=== PATIENT | female | born 1955 | race Caucasian/White ===

== ENCOUNTER 2019-10-07 10:24 | Inpatient (IN) | payer SELFPAY ==
[~2019-10-07] VITALS: Ht 167.7 cm; Wt 71.5 kg
[2019-10-07] MEDS ORDERED: NS IV 1000 ML 1,000 ML IV SCH (10:42)
[2019-10-07] MEDS ORDERED: DILTIAZEM 25 MG/5 ML INJ (CARDIZEM) VIAL IVP ONE (10:45)
[2019-10-07] MEDS ORDERED: ASPIRIN 81 MG CHEW (CHILDREN'S ASA) PO ONE (10:45)
--- NOTE | 2019-10-07 10:48 | ED Chest Pain ---
General Chief Complaint: Cardiac/General Problems Stated Complaint: SOB/CP Source: patient Exam Limitations: no limitations History of Present Illness Date Seen by Provider: Oct 07, 2019 Time Seen by Provider: 10:30 Initial Comments Patient presents to ER by private conveyance with her son-in-law and chief complaint of tiredness, shortness of breath, chest tightness especially on the left side nonradiating and she denies pain. She has no history of coronary di sease. She does however have a history of atrial fibrillation with rapid response in the past. She was taken off all her medications because she had remained in a normal sinus rhythm about 4 years ago. She is followed by separations scientist in [place]. She does not follow with a primary care doctor. She denies a history of hypertension, hyperlipidemia, diabetes. She smokes about half pack cigarettes per day on average. She also endorses having smoked methamphetamines about 4 days ago. Her symptoms of racing heart, shortness of breath and weakness started about 3 weeks ago. She suspected then that her atrial fibrillation was back but says she was stubborn and did not want to come get checked out. 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 She notes that her bilateral leg edema is chronic. She used to be on Lasix but discontinued at the same time she stopped the rest of her medications. Allergies and Home Medications Allergies Coded Allergies: No Known Drug Allergies (Unverified , 10/07/19) Patient Home Medication List Home Medication List Reviewed: Yes Review of Systems Review of Systems Constitutional: No chills, No diaphoresis EENTM: No Blurred Vision, No Double Vision Respiratory: Denies Cough; Shortness of Air Cardiovascular: See HPI, Chest Pain (tightness); Denies Edema, Denies Lightheadedness Gastrointestinal: Denies Abdomen Distended, Denies Abdominal Pain Genitourinary: Denies Burning, Denies Discharge Musculoskeletal: No back pain, No gout, No joint pain All Other Systems Reviewed Negative Unless Noted: Yes Past Bbhvkxz-Nhuiit-Cvvgoq Hx Patient Social History Alcohol Use: Denies Use Recreational Drug Use: Yes Drug of Choice: methamphetamine Smoking Status: Current Everyday Smoker Type Used: Cigarettes (0.5 ppd) Recent Foreign Travel: No Contact w/Someone Who Travel: No Physical Exam Vital Signs Vital Signs - First Documented 10/07/19 10:24 Temp 36.4 Pulse 141 Resp 23 B/P (MAP) 109/86 (94) Pulse Ox 98 O2 Delivery Room Air Capillary Refill : Height, Weight, BMI Height: '" Weight: lbs. oz. kg; BMI Method: General Appearance: Mild Distress, Other (this gentleman) HEENT: PERRL/EOMI, Pharynx Normal, Moist Mucous Membranes Neck: Full Range of Motion, Normal Inspection Respiratory: Chest Non Tender, Lungs Clear, Normal Breath Sounds, No Accessory Muscle Use, No Respiratory Distress Cardiovascular: Irregularly Irregular, Tachycardia Gastrointestinal: Normal Bowel Sounds, Soft, Tenderness (epigastric mild) Extremity: Normal Capillary Refill, Pedal Edema (bilateral 1+) Neurologic/Psychiatric: Alert, Oriented x3, No Motor/Sensory Deficits Skin: Normal Color, Warm/Dry Progress/Results/Core Measures Results/Orders Lab Results Laboratory Tests Test 10/07/19 10:40 Range/Units White Blood Count 6.7 4.3-11.0 10^3/uL Red Blood Count 4.94 4.35-5.85 10^6/uL Hemoglobin 14.5 11.5-16.0 G/DL Hematocrit 45 35-52 % Mean Corpuscular Volume 91 80-99 FL Mean Corpuscular Hemoglobin 29 25-34 PG Mean Corpuscular Hemoglobin Concent 32 32-36 G/DL Red Cell Distribution Width 14.4 10.0-14.5 % Platelet Count 213 130-400 10^3/uL Mean Platelet Volume 10.0 7.4-10.4 FL Neutrophils (%) (Auto) 70 42-75 % Lymphocytes (%) (Auto) 16 12-44 % Monocytes (%) (Auto) 12 0-12 % Eosinophils (%) (Auto) 2 0-10 % Basophils (%) (Auto) 0 0-10 % Neutrophils # (Auto) 4.7 1.8-7.8 X 10^3 Lymphocytes # (Auto) 1.1 1.0-4.0 X 10^3 Monocytes # (Auto) 0.8 0.0-1.0 X 10^3 Eosinophils # (Auto) 0.1 0.0-0.3 10^3/uL Basophils # (Auto) 0.0 0.0-0.1 10^3/uL Prothrombin Time 13.5 12.2-14.7 SEC INR Comment 1.0 0.8-1.4 Activated Partial Thromboplast Time 27 24-35 SEC Sodium Level 141 135-145 MMOL/L Potassium Level 4.1 3.6-5.0 MMOL/L Chloride Level 108 H 98-107 MMOL/L Carbon Dioxide Level 24 21-32 MMOL/L Anion Gap 9 5-14 MMOL/L Blood Urea Nitrogen 18 7-18 MG/DL Creatinine 0.81 0.60-1.30 MG/DL Estimat Glomerular Filtration Rate > 60 BUN/Creatinine Ratio 22 Glucose Level 98 70-105 MG/DL Calcium Level 9.0 8.5-10.1 MG/DL Corrected Calcium 9.2 8.5-10.1 MG/DL Magnesium Level 1.7 1.6-2.4 MG/DL Total Bilirubin 0.7 0.1-1.0 MG/DL Aspartate Amino Transf (AST/SGOT) 24 5-34 U/L Alanine Aminotransferase (ALT/SGPT) 38 0-55 U/L Alkaline Phosphatase 85 40-136 U/L Myoglobin 36.3 10.0-92.0 NG/ML Troponin I < 0.028 <0.028 NG/ML B-Type Natriuretic Peptide 414.2 H <100.0 PG/ML Total Protein 6.2 L 6.4-8.2 GM/DL Albumin 3.8 3.2-4.5 GM/DL My Orders Orders - LOUISA PALMER Continuous Ekg Monitoring (10/07/19 10:36) Ekg Tracing (10/07/19 10:36) Cbc With Automated Diff (10/07/19 10:42) Magnesium (10/07/19 10:42) Chest 1 View, Ap/Pa Only (10/07/19 10:42) Comprehensive Metabolic Panel (10/07/19 10:42) Myoglobin Serum (10/07/19 10:42) Protime With Inr (10/07/19 10:42) Partial Thromboplastin Time (10/07/19 10:42) O2 (10/07/19 10:42) Lipid Panel (10/08/19 06:00) Ed Iv/Invasive Line Start (10/07/19 10:42) BNP (10/07/19 10:42) Troponin I (10/07/19 10:42) Aspirin Chewable Tablet (Baby Aspirin Ch (10/07/19 10:45) Diltiazem Injection (Cardizem Injection) (10/07/19 10:45) Ns (Ivpb) (Sodium C... W/Diltiazem Iv Fo (10/07/19 10:45) Ed Iv/Invasive Line Start (10/07/19 10:42) Ns Iv 1000 Ml (Sodium Chloride 0.9%) (10/07/19 10:42) Ua Culture If Indicated (10/07/19 11:23) Drug Screen Stat (Urine) (10/07/19 11:23) Morphine Injection (Morphine Injection (10/07/19 11:23) Lorazepam Injection (Ativan Injection) (10/07/19 11:30) Medications Given in ED Current Medications Medications Dose Ordered Sig/Emilia Route Start Time Stop Time Status Last Admin Dose Admin Aspirin 324 mg ONCE ONCE PO 10/07/19 10:45 10/07/19 10:46 DC 10/07/19 10:51 324 MG Diltiazem HCl 10 mg ONCE ONCE IVP 10/07/19 10:45 10/07/19 10:46 DC 10/07/19 10:53 10 MG Lorazepam 1 mg ONCE ONCE IVP 10/07/19 11:30 10/07/19 11:31 DC 10/07/19 11:35 1 MG Vital Signs/I&O 10/07/19 10/07/19 10:24 11:00 Temp 36.4 Pulse 141 140 Resp 23 B/P (MAP) 109/86 (94) 103/82 Pulse Ox 98 O2 Delivery Room Air Progress Progress Note : Time: 10:50 Progress Note We'll give her some aspirin to chew up and swallow and a cardiac workup. We'll also address the likely source of her symptoms by giving her Cardizem and a liter of fluids. We have discussed anticoagulants with her. She is to use Xarelto and is in agreement with their continued use. Initial ECG Impression Date: Oct 07, 2019 Initial ECG Impression Time: 10:34 Initial ECG Rate: 135 Initial ECG Rhythm: A Fib/Flutter Initial ECG Intervals: QT (450) Initial ECG Impression: Atrial Fibrillation w/RVR Comment Atrial fibrillation with rapid ventricular response. Diagnostic Imaging Diagonstic Imaging: Xray Plain Films/CT/US/NM/MRI: chest (1v) Reviewed: Reviewed by Me Departure Communication (Admissions) Time/Spoke to Admitting Phy: 12:31 Discussed case lab findings history of meth use with Dr. Canchola and he agrees with ICU admission on Cardizem. Time/Spoke to Consulting Phy: 12:25 Discussed case lab imaging findings with Dr. Roach and he agrees with Cardizem drip and admission to the ICU through medicine. Eliquis 5 mg now and twice daily. Impression Primary Impression: Atrial fibrillation with rapid ventricular response Disposition: ADMITTED INPATIENT Condition: Stable Admissions Decision to Admit Reason: Admit from ER (General) Decision to Admit/Date: Oct 07, 2019 Time/Decision to Admit Time: 10:52 Departure-Patient Inst. Referrals: NO,LOCAL PHYSICIAN (PCP/Family) Primary Care Physician LOUISA PALMER Oct 07, 2019 10:48 POS
[2019-10-07 10:51] LABS: BASOPHILS % (AUTO) 0 % (0-10); EOSINOPHILS # (AUTO) 0.1 10^3/uL (0.0-0.3); EOSINOPHILS % (AUTO) 2 % (0-10); HEMATOCRIT 45 % (35-52); HEMOGLOBIN 14.5 G/DL (11.5-16.0); LYMPHOCYTES # (AUTO) 1.1 X 10^3 (1.0-4.0); LYMPHOCYTES % (AUTO) 16 % (12-44); MEAN CORPUSCULAR HEMOGLOBIN 29 PG (25-34); MEAN CORPUSCULAR HGB CONC 32 G/DL (32-36); MEAN CORPUSCULAR VOLUME 91 FL (80-99); MONOCYTES # (AUTO) 0.8 X 10^3 (0.0-1.0); MONOCYTES % (AUTO) 12 % (0-12); NEUTROPHILS # (AUTO) 4.7 X 10^3 (1.8-7.8); NEUTROPHILS % (AUTO) 70 % (42-75); PLATELET COUNT 213 10^3/uL (130-400); RED CELL DISTRIBUTION WIDTH 14.4 % (10.0-14.5); WHITE BLOOD COUNT 6.7 10^3/uL (4.3-11.0)
[2019-10-07] MEDS: DILTIAZEM IV FOR DRIP 125 MG in NS (IVPB) 100 ML IV SCH (11:00)
[2019-10-07 11:03] LABS: PROTHROMBIN TIME PATIENT 13.5 SEC (12.2-14.7)
[2019-10-07 11:11] LABS: ALANINE AMINOTRANSFERASE 38 U/L (0-55); ALBUMIN 3.8 GM/DL (3.2-4.5); ALKALINE PHOSPHATASE 85 U/L (40-136); BILIRUBIN,TOTAL 0.7 MG/DL (0.1-1.0); BUN/CREATININE RATIO 22; CARBON DIOXIDE 24 MMOL/L (21-32); CHLORIDE 108 MMOL/L (98-107); CREATININE SERUM 0.81 MG/DL (0.60-1.30); GFR ESTIMATED > 60; GLUCOSE 98 MG/DL (70-105); MAGNESIUM 1.7 MG/DL (1.6-2.4); POTASSIUM 4.1 MMOL/L (3.6-5.0); SODIUM 141 MMOL/L (135-145); TOTAL PROTEIN 6.2 GM/DL (6.4-8.2)
[2019-10-07] MEDS ORDERED: morphine INJ 10 MG/ML 1ML (SYR OR VIAL) IVP STA (11:23)
--- NOTE | 2019-10-07 11:24 | Diagnostic Imaging Report ---
EXAMINATION: Chest 1 view HISTORY: Chest pressure and shortness of breath for 3 weeks. COMPARISON: None available. FINDINGS: The lung volumes are normal. Consolidative opacities are seen in the left lung base with a small to moderate left-sided pleural effusion. There is cardiomegaly with prominent central pulmonary vasculature. Calcified aortic atherosclerotic plaque is noted. No acute osseous abnormality is seen. IMPRESSION: 1. Consolidative opacities in the left lung base with left sided pleural effusion. This may represent atelectasis or infection. 2. Cardiomegaly with mild central pulmonary vascular congestion. Dictated by: Dictated on workstation # [id number]
[2019-10-07] MEDS ORDERED: LORazepam INJ 2 MG/ML (ATIVAN) VIAL IVP ONE (11:30)
[2019-10-07] MEDS ORDERED: APIXABAN 5 MG (ELIQUIS) TABLET PO ONE (12:45)
--- NOTE | 2019-10-07 13:08 | NUR ---
Pt very lethargic and difficult to arrouse after ativan.
--- NOTE | 2019-10-07 13:30 | NUR ---
patient arrived from ED via cart accompanied by ED staff and family. Patient stable, drousy from ativan but awakens to name. oriented to room and updated to plan of care. family in and updated.
[2019-10-07] MEDS ORDERED: ACETAMINOPHEN 500 MG TAB (TYLENOL) PO PRN (13:45)
[2019-10-07] MEDS ORDERED: ONDANSETRON 4 MG/2 ML (SDV) Z0FRAN IV PRN (13:45)
[2019-10-07] MEDS ORDERED: LORazepam INJ 2 MG/ML (ATIVAN) VIAL IV PRN (13:45)
[2019-10-07 14:00] VITALS: BP 107/85
[2019-10-07 15:00] VITALS: BP 107/85
--- NOTE | 2019-10-07 15:02 | Consultation-Cardiology ---
HPI-Cardiology Cardiology Consultation: Date of Consultation 10/07/19 Time Seen by a Provider: 13:40 Date of Admission Attending Physician [place] Canchola MD Admitting Physician No,Local Physician Consulting Physician RADHA GRAVES MD, MA, FACP, FACC, FSCAI, CCDS HPI: Chief Complaint: Reason for consultation: A fib with RVR HPI 68 yo woman admitted through ER this morning with gen malaise and tiredness and exertional shortness of breath and an intermittent feeling or rapid heart beat for the last two to three weeks. She does not reprt cp or syncope. Notes chronic ankle swelling. Note gen weakness. Denies fever or chills. Review of Systems-Cardiology Review of Systems Constitutional: As described under HPI Eyes: No vision change Ears/Nose/Throat: No ear discharge, No nasal drainage, No recent hearing loss Respiratory: As described under HPI Cardiovascular: As described under HPI Gastrointestinal: No constipation, No diarrhea, No nausea, No vomiting Genitourinary: No dysuria, No hematuria, No urine frequency changes Musculoskeletal: No back pain, No joint pain Skin: No rash, No ulcerations Psychiatric/Neurological: No seizure, No focal weakness, No syncope Hematologic: No bleeding abnormalities All Other Systems Reviewed Negative Unless Noted: Yes KIO-[place]kan[place]-Fodlxb Hx Patient Social History Alcohol Use: Denies Use Recreational Drug Use: Yes Drug of Choice: methamphetamine Smoking Status: Current Everyday Smoker Type Used: Cigarettes (0.5 ppd) 2nd Hand Smoke Exposure: Yes Recent Foreign Travel: No Recent Infectious Disease Expo: No Hospitalization with Isolation: Denies Past Medical History PMH As described under Assessment. Family Medical History Family Medical History: She does not report fam h/o early CAD or SCD Allergies and Home Medications Allergies Coded Allergies: No Known Drug Allergies (Unverified , 10/07/19) Patient Home Medication List Home Medication List Reviewed: Yes Physical Exam-Cardiology Physical Exam Vital Signs/I&O 10/07/19 10/07/19 10/07/19 10:24 11:00 13:00 Temp 36.4 36.5 Pulse 141 140 115 Resp 23 10 B/P (MAP) 109/86 (94) 103/82 104/82 Pulse Ox 98 96 O2 Delivery Room Air Room Air Capillary Refill : Less Than 3 Seconds Constitutional: AAO x 3, well-developed, well-nourished HEENT: PERRL, EOMI; No xanthelasmas are seen Neck: carotid pulses are 2 + bilaterally, with good upstrokes Respiratory: No accessory muscle use; other (Good bilateral air entry) Cardiovascular: regular rate-rhythm, S1 and S2, systolic murmur (soft CORTNEY at card base) Gastrointestinal: No tender; soft; No guarding, No rebound; audible bowel sounds Extremities: swelling (mild, bilateral leg swelling); No clubbing, No cyanosis Neurologic/Psychiatric: oriented x 3, other (moves all limbs equally) Skin: No rash on exposed areas, No ulcerations on exposed areas Data Review Labs Laboratory Tests 10/07/19 10:40: White Blood Count 6.7, Red Blood Count 4.94, Hemoglobin 14.5, Hematocrit 45, Mean Corpuscular Volume 91, Mean Corpuscular Hemoglobin 29, Mean Corpuscular Hemoglobin Concent 32, Red Cell Distribution Width 14.4, Platelet Count 213, Mean Platelet Volume 10.0, Neutrophils (%) (Auto) 70, Lymphocytes (%) (Auto) 16, Monocytes (%) (Auto) 12, Eosinophils (%) (Auto) 2, Basophils (%) (Auto) 0, Neutrophils # (Auto) 4.7, Lymphocytes # (Auto) 1.1, Monocytes # (Auto) 0.8, Eosinophils # (Auto) 0.1, Basophils # (Auto) 0.0, Prothrombin Time 13.5, INR Comment 1.0, Activated Partial Thromboplast Time 27, Sodium Level 141, Potassium Level 4.1, Chloride Level 108H, Carbon Dioxide Level 24, Anion Gap 9, Blood Urea Nitrogen 18, Creatinine 0.81, Estimat Glomerular Filtration Rate > 60, BUN/Creatinine Ratio 22, Glucose Level 98, Calcium Level 9.0, Corrected Calcium 9.2, Magnesium Level 1.7, Total Bilirubin 0.7, Aspartate Amino Transf (AST/SGOT) 24, Alanine Aminotransferase (ALT/SGPT) 38, Alkaline Phosphatase 85, Myoglobin 36.3, Troponin I < 0.028, B-Type Natriuretic Peptide 414.2H, Total Protein 6.2L, Albumin 3.8 Laboratory Tests 10/07/19 10:40 A/P-Cardiology Assessment/Admission Diagnosis A Fib with RVR, age of onset undetermined Chronic tobacco use: smokes cigarettes Discussion and Recomendations * iv dilt for rate control * Oral apixaban or stroke and DVT prophylaxis * Monitor labs * Check TSH * Echocardiogram * Advised to quit smoking immediately and completely RADHA GRAVES MD FACP FAC CCDS Oct 07, 2019 15:02 POS
[2019-10-07 16:00] VITALS: BP 107/85
[2019-10-07] MEDS ORDERED: ONDANSETRON 4 MG (ZOFRAN) ORAL DISSOLVE TAB PO PRN (16:15)
[2019-10-07] MEDS ORDERED: POLYETHYLENE GLYCOL 17 GM (MIRALAX) PACK PO PRN (16:15)
[2019-10-07] MEDS ORDERED: MELATONIN 3 MG TABLET PO PRN (16:15)
[2019-10-07] MEDS ORDERED: ACETAMINOPHEN 325 MG TABLET PO PRN (16:15)
--- NOTE | 2019-10-07 16:53 | History & Physical-Hospitalist ---
History of Present Illness HPI/Chief Complaint Angela Melgar is a 68yoF with PMH paroxysmal atrial fibrillation who presented with malaise, chest pressure, and dyspnea which had been going on for a few weeks. She reports that she has had atrial fibrillation in the past but she says that her doctor took her off of her medications. She does not take any medications on a daily basis at this time. She says she has COPD and has inhalers but only uses that as needed albuterol inhaler. She denies any fevers or chills. She denies any cough. She denies any abdominal pain, nausea, or vomiting. She reportedly used methamphetamine a little less than a week ago. Source: patient Exam Limitations: no limitations Date Seen 10/07/19 Time Seen by a Provider: 16:48 Attending Physician [place] Hensley MD PCP No,Local Physician Referring Physician Date of Admission Oct 07, 2019 at 12:30 Home Medications & Allergies Home Medications Reviewed patient Home Medication Reconciliation performed by pharmacy medication reconciliations permit technician and/or nursing. Patients Allergies have been reviewed. Allergies Allergies Coded Allergies No Known Drug Allergies ([id number]/30/19) Past As[place]ky-Xfzjxx-Vofbkd Hx Past Med/Social Hx: Reviewed Nursing Past Med/Soc Hx Patient Social History Alcohol Use: Denies Use Recreational Drug Use: Yes Drug of Choice: methamphetamine Smoking Status: Current Everyday Smoker Type Used: Cigarettes (0.5 ppd) 2nd Hand Smoke Exposure: Yes Recent Foreign Travel: No Contact w/other who traveled: No Recent Hopitalizations: No Recent Infectious Disease Expo: No Seasonal Allergies Seasonal Allergies: No Past Medical History Surgeries: Section, Tubal Ligation Cardiac: Atrial Fibrillation History of Blood Disorders: No Review of Systems Constitutional: malaise EENTM: ear discharge, ear pain Respiratory: short of breath Cardiovascular: chest pain, edema Gastrointestinal: no symptoms reported Genitourinary: no symptoms reported Musculoskeletal: no symptoms reported Skin: no symptoms reported Psychiatric/Neurological: No Symptoms Reported Physical Exam Physical Exam Vital Signs Vital Signs - First Documented 10/07/19 10:24 Temp 36.4 Pulse 141 Resp 23 B/P (MAP) 109/86 (94) Pulse Ox 98 O2 Delivery Room Air Capillary Refill : Less Than 3 SecondsLess Than 3 Seconds Height, Weight, BMI Height: '" Weight: lbs. oz. kg; 24.00 BMI Method: General Appearance: No Apparent Distress, WD/WN HEENT: PERRL/EOMI, Pharynx Normal, Other (Dentures in place) Neck: Normal Inspection, Supple; No Thyromegaly Respiratory: Lungs Clear, Normal Breath Sounds, No Respiratory Distress Cardiovascular: No Murmur, Irregularly Irregular, Other (Regular rate) Gastrointestinal: Normal Bowel Sounds, Non Tender, Soft Extremity: Normal Inspection, Non Tender, Pedal Edema, Swelling Neurologic/Psychiatric: Alert, Oriented x3, No Motor/Sensory Deficits, Normal Mood/Affect Skin: Normal Color, Warm/Dry Results Results/Procedures Labs Laboratory Tests 10/07/19 10:40 Patient resulted labs reviewed. Imaging: Reviewed Imaging Report Assessment/Plan Admission Diagnosis Paroxysmal atrial fibrillation with rapid ventricular response Admission Status: Inpatient Order (span 2 midnights) Reason for Inpatient Admission: A. fib requiring IV medications Assessment and Plan Paroxysmal atrial fibrillation with rapid ventricular response EKG revealed A. fib with RVR Started on IV Cardizem, continue Started on Eliquis, continue Cardiology consulted, appreciate recommendations Troponin within normal limits TSH normal Obtain echo Methamphetamine abuse Obtain urine toxicology screen Nicotine dependence, cigarettes, uncomplicated Nicotine patch and gum available DVT prophylaxis: Already receiving therapeutic anticoagulation Diagnosis/Problems Diagnosis/Problems (1) Atrial fibrillation with rapid ventricular response Status: Acute (2) Methamphetamine abuse Status: Chronic (3) Nicotine dependence, cigarettes, uncomplicated Status: Chronic Clinical Quality Measures DVT/VTE Risk/Contraindication: Risk Factor Score Per Nursin RFS Level Per Nursing on Admit: 4+=Very High BROOKLYN HENSLEY MD Oct 07, 2019 16:53 POS
--- NOTE | 2019-10-07 18:20 | NUR ---
patient complains of anxiety, vital signs stable, no other complaints, Dr Bradford notified.
[2019-10-07] MEDS: ALPRAZolam 0.25 MG (XANAX) TAB PO PRN (18:25)
[2019-10-07 19:09] LABS: BILIRUBIN,URINE NEGATIVE (NEGATIVE); CLARITY,URINE CLEAR; COLOR,URINE YELLOW; GLUCOSE, URINE (UA) NEGATIVE (NEGATIVE); KETONES,URINE NEGATIVE (NEGATIVE); LEUKOCYTE ESTERASE ,URINE NEGATIVE (NEGATIVE); NITRITE,URINE NEGATIVE (NEGATIVE); PROTEIN,URINE NEGATIVE (NEGATIVE)
[2019-10-07 19:18] LABS: BACTERIA,URINE TRACE /HPF; SQUAMOUS EPITHELIAL CELL,UR 0-2 /HPF
[2019-10-07 19:38] LABS: AMPHETAMINE SCREEN, URINE POSITIVE (NEGATIVE); BARBITURATE SCREEN URINE NEGATIVE (NEGATIVE); BENZODIAZEPINES SCREEN URINE NEGATIVE (NEGATIVE); CANNABINOID SCREEN, URINE NEGATIVE (NEGATIVE); COCAINE SCREEN URINE NEGATIVE (NEGATIVE); METHADONE STAT NEGATIVE (NEGATIVE); METHAMPHETAMINE SCREEN URINE S POSITIVE (NEGATIVE); OPIATE SCREEN URINE NEGATIVE (NEGATIVE); OXYCODONE STAT NEGATIVE (NEGATIVE); PROPOXYPHENE STAT NEGATIVE (NEGATIVE); TRICYCLIC ANTIDEPRESSANTS SCRE NEGATIVE (NEGATIVE)
[2019-10-07] MEDS ORDERED: MAGNESIUM 1 GM/100 ML IVPB 100 ML IV ONE ×2 (21:27→21:32)
[2019-10-07] MEDS: DOCUSATE SODIUM 100 MG (COLACE) CAP PO SCH (21:31)
[2019-10-07] MEDS: APIXABAN 5 MG (ELIQUIS) TABLET PO SCH (21:31)
[2019-10-07] MEDS: MAGNESIUM 1 GM/100 ML IVPB 100 ML IV SCH ×2 (21:32→22:15)
[2019-10-07 22:00] VITALS: BP 87/64
[2019-10-07 23:00] VITALS: BP 93/68
[2019-10-08] VITALS (23 sets, daily range): BP systolic 72–148; BP diastolic 51–109
[2019-10-08] MEDS: DILTIAZEM IV FOR DRIP 125 MG in NS (IVPB) 100 ML IV SCH (02:57)
[2019-10-08] MEDS: ALPRAZolam 0.25 MG (XANAX) TAB PO PRN ×2 (04:20→15:19)
[2019-10-08 05:42] LABS: BASOPHILS % (AUTO) 1 % (0-10); EOSINOPHILS # (AUTO) 0.1 10^3/uL (0.0-0.3); EOSINOPHILS % (AUTO) 2 % (0-10); HEMATOCRIT 44 % (35-52); HEMOGLOBIN 14.1 G/DL (11.5-16.0); LYMPHOCYTES # (AUTO) 1.2 X 10^3 (1.0-4.0); LYMPHOCYTES % (AUTO) 21 % (12-44); MEAN CORPUSCULAR HEMOGLOBIN 29 PG (25-34); MEAN CORPUSCULAR HGB CONC 32 G/DL (32-36); MEAN CORPUSCULAR VOLUME 92 FL (80-99); MEAN PLATELET VOLUME 10.9 FL (7.4-10.4); MONOCYTES # (AUTO) 0.7 X 10^3 (0.0-1.0); MONOCYTES % (AUTO) 13 % (0-12); NEUTROPHILS # (AUTO) 3.5 X 10^3 (1.8-7.8); NEUTROPHILS % (AUTO) 64 % (42-75); PLATELET COUNT 200 10^3/uL (130-400); RED CELL DISTRIBUTION WIDTH 14.4 % (10.0-14.5); WHITE BLOOD COUNT 5.5 10^3/uL (4.3-11.0)
--- NOTE | 2019-10-08 05:44 | Pulmonary Consultation ---
History of Present Illness History of Present Illness Date of Admission Allergies and Home Medications Allergies Coded Allergies: No Known Drug Allergies (Unverified , 10/07/19) Past Lxajbxy-Kowwny-Halrjk Hx Past Med/Social Hx: Reviewed Nursing Past Med/Soc Hx Patient Social History Alcohol Use: Denies Use Recreational Drug Use: Yes Drug of Choice: methamphetamine Smoking Status: Current Everyday Smoker Type Used: Cigarettes (0.5 ppd) 2nd Hand Smoke Exposure: Yes Recent Foreign Travel: No Contact w/Someone Who Travel: No Recent Infectious Disease Expo: No Recent Hopitalizations: No Seasonal Allergies Seasonal Allergies: No Past Medical History Surgeries: Yes Section, Tubal Ligation Respiratory: No Cardiac: Yes Atrial Fibrillation Neurological: No Genitourinary: No Gastrointestinal: No Musculoskeletal: No Endocrine: No HEENT: No Cancer: No Psychosocial: No Integumentary: No Blood Disorders: No Sepsis Event Evaluation Height, Weight, BMI Height: '" Weight: lbs. oz. kg; 24.00 BMI Method: Exam Exam Vital Signs Date Time Temp Pulse Resp B/P (MAP) Pulse Ox O2 Delivery O2 Flow Rate FiO2 10/08/19 05:00 97 22 114/74 (87) 99 Room Air 10/08/19 04:00 98 Room Air 10/08/19 04:00 94 18 120/86 (97) 99 Room Air 10/08/19 03:00 94 16 125/109 (114) 97 Room Air 10/08/19 02:57 103 107/95 10/08/19 02:00 110 20 107/90 (96) 99 Room Air 10/08/19 01:00 106 18 110/78 (89) 94 Room Air 10/08/19 00:50 113 10/08/19 00:08 97 16 88/77 (81) 99 Room Air 10/08/19 00:00 98 Room Air 10/07/19 23:00 87 19 93/68 (76) 98 Room Air 10/07/19 22:00 88 22 87/64 (72) 96 Room Air 10/07/19 18:44 101 10/07/19 18:00 101 32 98 Room Air 10/07/19 16:00 96 Room Air 10/07/19 16:00 104 22 107/85 (92) 98 Room Air 10/07/19 15:00 104 22 98 Room Air 10/07/19 15:00 37.0 114 16 107/85 (92) 96 Room Air 10/07/19 14:00 105 19 107/85 (92) 100 Room Air 10/07/19 13:32 107 10/07/19 13:30 98 Room Air 10/07/19 13:00 36.5 115 10 104/82 96 Room Air 10/07/19 11:00 140 103/82 10/07/19 10:24 36.4 141 23 109/86 (94) 98 Room Air I & O 10/08/19 07:00 Intake Total 1540 ml Balance 1540 ml Height & Weight Height: '" Weight: lbs. oz. kg; 24.00 BMI Method: General Appearance: No Apparent Distress, WD/WN HEENT: PERRL/EOMI, Pharynx Normal, Other (Dentures in place) Neck: Normal Inspection, Supple; No Thyromegaly Respiratory: Lungs Clear, Normal Breath Sounds, No Respiratory Distress Cardiovascular: No Murmur, Irregularly Irregular, Other (Regular rate) Extremity: Normal Inspection, Non Tender, Pedal Edema, Swelling Neurologic/Psychiatric: Alert, Oriented x3, No Motor/Sensory Deficits, Normal Mood/Affect Skin: Normal Color, Warm/Dry Results Lab Laboratory Tests 10/07/19 10:40 Assessment/Plan Assessment/Plan Worsening SOB with hypoxia -Oxygen -may need home oxygen prior to discharge Paroxysmal Afib with RVR -Cardizem gtt -Cardiology following Methamphetamine use Tobacco use -Education NIK POPE DO Oct 08, 2019 05:44 POS
[2019-10-08 06:05] LABS: ALANINE AMINOTRANSFERASE 31 U/L (0-55); ALBUMIN 3.5 GM/DL (3.2-4.5); ALKALINE PHOSPHATASE 76 U/L (40-136); BILIRUBIN,TOTAL 0.8 MG/DL (0.1-1.0); BUN/CREATININE RATIO 23; CALCIUM 8.7 MG/DL (8.5-10.1); CARBON DIOXIDE 19 MMOL/L (21-32); CHLORIDE 108 MMOL/L (98-107); CHOLESTEROL 137 MG/DL (< 200); CREATININE SERUM 0.71 MG/DL (0.60-1.30); GFR ESTIMATED > 60; GLUCOSE 100 MG/DL (70-105); HDL CHOLESTEROL 52 MG/DL (40-60); POTASSIUM 4.2 MMOL/L (3.6-5.0); SODIUM 139 MMOL/L (135-145); TOTAL PROTEIN 5.8 GM/DL (6.4-8.2); TRIGLYCERIDES 73 MG/DL (<150); VLDL CHOLESTEROL 15 MG/DL (5-40)
[2019-10-08] MEDS: POTASSIUM CL 10MEQ/50ML IVPB 50 ML IV SCH (06:15)
[2019-10-08] MEDS: KCL 20 MEQ TAB (K-DUR) PO SCH (06:15)
[2019-10-08] MEDS: MAGNESIUM 1 GM/100 ML IVPB 100 ML IV SCH (06:38)
--- NOTE | 2019-10-08 07:29 | Diagnostic Imaging Report ---
INDICATION: Shortness of air. Compared 10/07/2019 FINDINGS: Bilateral effusions, greater left, similar. Localized infiltrate and atelectasis in the left base not appreciably changed. Cardiomegaly, vascular congestion and probable interstitial edema unchanged. No pneumothorax. IMPRESSION: No real change in pleural fluid, cardiomegaly, congestion, edema, and localized infiltrate and atelectasis to the left lower lobe. Dictated by: Dictated on workstation # [id number]
[2019-10-08] MEDS: DOCUSATE SODIUM 100 MG (COLACE) CAP PO SCH ×2 (10:26→21:42)
[2019-10-08] MEDS: APIXABAN 5 MG (ELIQUIS) TABLET PO SCH ×2 (10:26→21:42)
[2019-10-08] MEDS ORDERED: CARBAM PEROX/GLYC/PROP 15 ML DROPS (DEBROX) EACH EAR PRN ×2 (10:30→10:45)
--- NOTE | 2019-10-08 10:36 | Progress Note - Hospitalist ---
Subjective HPI/CC On Admission Date Seen by Provider: Oct 08, 2019 Time Seen by Provider: 10:33 Angela Melgar is a 68yoF with PMH paroxysmal atrial fibrillation who presented with malaise, chest pressure, and dyspnea which had been going on for a few weeks. She reports that she has had atrial fibrillation in the past but she says that her doctor took her off of her medications. She does not take any medications on a daily basis at this time. She says she has COPD and has inhalers but only uses that as needed albuterol inhaler. She denies any fevers or chills. She denies any cough. She denies any abdominal pain, nausea, or vomiting. She reportedly used methamphetamine a little less than a week ago. Subjective/Events-last exam Pt reports feeling better. Has mild chest tightness but much improved from admission. No other complaints. Daughter states patient has complained of ear pain. Pt denies. Objective Exam Vital Signs Vital Signs Date Time Temp Pulse Resp B/P (MAP) Pulse Ox O2 Delivery O2 Flow Rate FiO2 10/08/19 10:00 96 17 98/70 (79) 93 Room Air 10/07/19 15:00 37.0 Capillary Refill : Less Than 3 SecondsNONE General Appearance: No Apparent Distress, WD/WN Respiratory: Lungs Clear, No Respiratory Distress Cardiovascular: No Murmur, Irregularly Irregular Gastrointestinal: Normal Bowel Sounds, Non Tender, Soft Extremity: Pedal Edema Neurologic/Psychiatric: Alert, Oriented x3 Results/Procedures Lab Laboratory Tests 10/07/19 10:40 10/08/19 03:28 Patient resulted labs reviewed. Imaging: Reviewed Imaging Report Assessment/Plan Assessment and Plan Assess & Plan/Chief Complaint Paroxysmal atrial fibrillation with rapid ventricular response Continue Cardizem gtt, rate improved Continue Eliquis Cardiology consulted, appreciate recommendations Troponin within normal limits TSH normal Echo ordered Methamphetamine abuse UDS positive for meth Nicotine dependence, cigarettes, uncomplicated Nicotine patch and gum available DVT prophylaxis: Already receiving therapeutic anticoagulation Diagnosis/Problems Diagnosis/Problems (1) Atrial fibrillation with rapid ventricular response Status: Acute (2) Methamphetamine abuse Status: Chronic (3) Nicotine dependence, cigarettes, uncomplicated Status: Chronic Clinical Quality Measures DVT/VTE Risk/Contraindication: Risk Factor Score Per Nursin RFS Level Per Nursing on Admit: 4+=Very High AMISHA NAVARRO MD Oct 08, 2019 10:36 POS
--- NOTE | 2019-10-08 11:26 | Progress Note - Cardiology ---
Cardiology SOAP Progress Note Subjective: No cp or palp or syncope No shortness of breath at rest Chronic body pains as before Objective: I&O/Vital Signs 10/08/19 10/08/19 10/08/19 10/08/19 00:00 00:08 00:50 01:00 Pulse 97 113 106 Resp 16 18 B/P (MAP) 88/77 (81) 110/78 (89) Pulse Ox 98 99 94 O2 Delivery Room Air Room Air Room Air 10/08/19 10/08/19 10/08/19 10/08/19 02:00 02:57 03:00 04:00 Pulse 110 103 94 94 Resp 20 16 18 B/P (MAP) 107/90 (96) 107/95 125/109 (114) 120/86 (97) Pulse Ox 99 97 99 O2 Delivery Room Air Room Air Room Air 10/08/19 10/08/19 10/08/19 10/08/19 04:00 05:00 06:00 07:00 Pulse 97 90 97 Resp 22 18 B/P (MAP) 114/74 (87) 78/67 (71) Pulse Ox 98 99 94 O2 Delivery Room Air Room Air Room Air 10/08/19 10/08/19 10/08/19 10/08/19 07:00 08:00 08:00 09:00 Pulse 99 90 102 Resp 15 13 34 B/P (MAP) 102/91 (95) 106/78 (87) 106/92 (97) Pulse Ox 95 93 98 94 O2 Delivery Room Air Room Air Room Air Room Air 10/08/19 10/08/19 10:00 11:00 Pulse 96 93 Resp 17 20 B/P (MAP) 98/70 (79) 72/51 (58) Pulse Ox 93 96 O2 Delivery Room Air Room Air 10/08/19 00:00 Intake Total 540 ml Balance 540 ml Constitutional: AAO x 3, well-developed, well-nourished Respiratory: No accessory muscle use; other (Good bilateral air entry) Cardiovascular: regular rate-rhythm, S1 and S2, systolic murmur (soft CORTNEY at [place]) Gastrointestional: No tender; soft; No guarding, No rebound; audible bowel sounds Extremities: swelling (mild, bilateral leg swelling); No clubbing, No cyanosis Neurologic/Psychiatric: oriented x 3, other (moves all limbs equally) Skin: No rash on exposed areas, No ulcerations on exposed areas Results/Procedures: Labs Laboratory Tests 10/07/19 17:05: Urine Color YELLOW, Urine Clarity CLEAR, Urine pH 6.0, Urine Specific Patterson 1.025H, Urine Protein NEGATIVE, Urine Glucose (UA) NEGATIVE, Urine Ketones NEGATIVE, Urine Nitrite NEGATIVE, Urine Bilirubin NEGATIVE, Urine Urobilinogen 0.2, Urine Leukocyte Esterase NEGATIVE, Urine RBC (Auto) NEGATIVE, Urine RBC NONE, Urine WBC NONE, Urine Squamous Epithelial Cells 0-2, Urine Crystals NONE, Urine Bacteria TRACE, Urine Casts NONE, Urine Mucus SMALLH, Urine Culture Indicated NO, Urine Opiates Screen NEGATIVE, Urine Oxycodone Screen NEGATIVE, Urine Methadone Screen NEGATIVE, Urine Propoxyphene Screen NEGATIVE, Urine Barbiturates Screen NEGATIVE, Ur Tricyclic Antidepressants Screen NEGATIVE, Urine Phencyclidine Screen NEGATIVE, Urine Amphetamines Screen POSITIVEH, Urine Methamphetamines Screen POSITIVEH, Urine Benzodiazepines Screen NEGATIVE, Urine Cocaine Screen NEGATIVE, Urine Cannabinoids Screen NEGATIVE 10/07/19 18:19: Troponin I < 0.028 10/08/19 03:28: White Blood Count 5.5, Red Blood Count 4.82, Hemoglobin 14.1, Hematocrit 44, Mean Corpuscular Volume 92, Mean Corpuscular Hemoglobin 29, Mean Corpuscular Hemoglobin Concent 32, Red Cell Distribution Width 14.4, Platelet Count 200, Mean Platelet Volume 10.9H, Neutrophils (%) (Auto) 64, Lymphocytes (%) (Auto) 21, Monocytes (%) (Auto) 13H, Eosinophils (%) (Auto) 2, Basophils (%) (Auto) 1, Neutrophils # (Auto) 3.5, Lymphocytes # (Auto) 1.2, Monocytes # (Auto) 0.7, Eosinophils # (Auto) 0.1, Basophils # (Auto) 0.0, Sodium Level 139, Potassium Level 4.2, Chloride Level 108H, Carbon Dioxide Level 19L, Anion Gap 12, Blood Urea Nitrogen 16, Creatinine 0.71, Estimat Glomerular Filtration Rate > 60, BUN/Creatinine Ratio 23, Glucose Level 100, Calcium Level 8.7, Corrected Calcium 9.1, Magnesium Level 2.1, Total Bilirubin 0.8, Aspartate Amino Transf (AST/SGOT) 21, Alanine Aminotransferase (ALT/SGPT) 31, Alkaline Phosphatase 76, Total Protein 5.8L, Albumin 3.5, Triglycerides Level 73, Cholesterol Level 137, LDL Cholesterol Direct 79, VLDL Cholesterol 15, HDL Cholesterol 52 A/P: Assessment: A Fib with RVR, age of onset undetermined Intermittently low bp TSH normal on 10/08/19 (0.82) Chronic tobacco use: smokes cigarettes Plan: * Low bp is an issue * Reduce dose of dilt and change to oral * Add digoxin (for rate control w/o lowering bp) * iv fluids * Oral apixaban or stroke and DVT prophylaxis * Monitor labs * Echocardiogram * Advised to quit smoking immediately and completely RADHA GRAVES MD FACP FAC CCDS Oct 08, 2019 11:26 POS
[2019-10-08] MEDS ORDERED: DILTIAZEM 180 MG (CARDIZEM CD) CAP PO ONE ×2 (11:30→14:47)
[2019-10-08] MEDS ORDERED: DIGOXIN 0.125 MG (LANOXIN) TAB PO ONE (11:30)
[2019-10-08] MEDS ORDERED: NS IV 1000 ML 1,000 ML IV SCH (11:30)
[2019-10-08] MEDS ORDERED: DIGOXIN 0.25 MG/ML (LANOXIN) 2 ML AMP IV ONE (11:30)
[2019-10-08] MEDS ORDERED: DIGOXIN 0.125 MG (LANOXIN) TAB ONE ×2 (15:24→15:29)
[2019-10-08] MEDS ORDERED: FUROSEMIDE 20 MG (LASIX) TAB PO ONE (16:30)
[2019-10-09] VITALS (19 sets, daily range): BP systolic 90–125; BP diastolic 60–89
[2019-10-09 03:55] LABS: BASOPHILS % (AUTO) 1 % (0-10); EOSINOPHILS # (AUTO) 0.1 10^3/uL (0.0-0.3); EOSINOPHILS % (AUTO) 2 % (0-10); HEMATOCRIT 42 % (35-52); HEMOGLOBIN 13.4 G/DL (11.5-16.0); LYMPHOCYTES # (AUTO) 1.5 X 10^3 (1.0-4.0); LYMPHOCYTES % (AUTO) 28 % (12-44); MEAN CORPUSCULAR HEMOGLOBIN 29 PG (25-34); MEAN CORPUSCULAR HGB CONC 32 G/DL (32-36); MEAN CORPUSCULAR VOLUME 92 FL (80-99); MEAN PLATELET VOLUME 9.8 FL (7.4-10.4); MONOCYTES # (AUTO) 0.9 X 10^3 (0.0-1.0); MONOCYTES % (AUTO) 17 % (0-12); NEUTROPHILS # (AUTO) 2.7 X 10^3 (1.8-7.8); NEUTROPHILS % (AUTO) 52 % (42-75); PLATELET COUNT 200 10^3/uL (130-400); RED CELL DISTRIBUTION WIDTH 14.4 % (10.0-14.5); WHITE BLOOD COUNT 5.2 10^3/uL (4.3-11.0)
[2019-10-09 04:10] LABS: BUN/CREATININE RATIO 16; CALCIUM 8.6 MG/DL (8.5-10.1); CARBON DIOXIDE 22 MMOL/L (21-32); CHLORIDE 107 MMOL/L (98-107); CREATININE SERUM 0.79 MG/DL (0.60-1.30); GFR ESTIMATED > 60; GLUCOSE 91 MG/DL (70-105); MAGNESIUM 1.7 MG/DL (1.6-2.4); PHOSPHORUS 4.6 MG/DL (2.3-4.7); SODIUM 138 MMOL/L (135-145)
[2019-10-09] MEDS: POTASSIUM CL 10MEQ/50ML IVPB 50 ML IV SCH (04:20)
[2019-10-09] MEDS: KCL 20 MEQ TAB (K-DUR) PO SCH (04:20)
[2019-10-09] MEDS: MAGNESIUM 1 GM/100 ML IVPB 100 ML IV SCH (04:20)
--- NOTE | 2019-10-09 08:01 | Diagnostic Imaging Report ---
Examination: Chest, single frontal view INDICATION: Dyspnea. COMPARISON: Multiple priors, most recent performed on 10/08/2019. FINDINGS: No significant change in marked left basilar consolidation. Trace right pleural effusion and mild left basilar atelectasis are also unchanged. No pneumothorax is appreciated. There is unchanged cardiomegaly. There is persistent central vascular congestion, without overt edema. No acute osseous abnormalities demonstrated. IMPRESSION: Left basilar consolidation is unchanged, representing pleural effusion, atelectasis, pneumonia, or any combination of these. Unchanged small right pleural effusion and right basilar atelectasis. Unchanged moderate cardiomegaly and central vascular congestion, without overt edema. Dictated by: Dictated on workstation # [id number]
[2019-10-09] MEDS: DILTIAZEM 180 MG (CARDIZEM CD) CAP PO SCH (08:04)
[2019-10-09] MEDS: APIXABAN 5 MG (ELIQUIS) TABLET PO SCH ×2 (08:04→20:48)
[2019-10-09] MEDS: DIGOXIN 0.25 MG (LANOXIN) TAB PO SCH (08:04)
[2019-10-09] MEDS: DOCUSATE SODIUM 100 MG (COLACE) CAP PO SCH ×2 (08:04→20:48)
--- NOTE | 2019-10-09 08:06 | Pulmonary Progress Note ---
Subjective Time Seen by a Provider: 05:28 Subjective/Events-last exam Pt is still on Cardizem Sepsis Event Evaluation Height, Weight, BMI Height: '" Weight: lbs. oz. kg; 24.00 BMI Method: Exam Exam Vital Signs Date Time Temp Pulse Resp B/P (MAP) Pulse Ox O2 Delivery O2 Flow Rate FiO2 10/09/19 06:00 102 11 94/76 (82) 98 Room Air 10/09/19 05:00 101 Room Air 10/09/19 04:00 89 11 94/78 (83) 95 Room Air 10/09/19 04:00 93 Room Air 10/09/19 03:00 101 15 116/89 (98) 96 Room Air 10/09/19 02:12 88 13 93/63 (73) 97 Room Air 10/09/19 01:00 98 10/09/19 01:00 98 26 97/72 (80) 95 Room Air 10/09/19 00:13 36.8 10/09/19 00:00 93 13 95/62 (73) 95 Room Air 10/09/19 00:00 94 Room Air 10/08/19 23:00 103 12 99/72 (81) 96 Room Air 10/08/19 22:00 99 14 91/65 (74) 98 Room Air 10/08/19 21:00 114 18 148/82 (104) 98 Room Air 10/08/19 20:02 37.2 Room Air 10/08/19 20:00 94 Room Air 10/08/19 20:00 112 14 92/78 (83) 98 Room Air 10/08/19 19:00 109 16 99/77 (84) 99 Room Air 10/08/19 19:00 109 10/08/19 18:00 102 27 99/72 (81) 96 Room Air 10/08/19 17:00 103 16 100/81 (87) 99 Room Air 10/08/19 16:00 98 Room Air 10/08/19 16:00 92 21 99 Room Air 10/08/19 15:44 37.4 10/08/19 15:00 107 21 98/76 (83) 96 Room Air 10/08/19 14:00 108 16 95/78 (84) 98 Room Air 10/08/19 13:00 93 14 98/74 (82) 95 Room Air 10/08/19 12:09 88 12/1/19 12:00 98 Room Air 10/08/19 12:00 84 16 93/65 (74) 94 Room Air 10/08/19 11:30 37.3 10/08/19 11:00 93 20 72/51 (58) 96 Room Air 10/08/19 10:00 96 17 98/70 (79) 93 Room Air 10/08/19 09:00 102 34 106/92 (97) 94 Room Air I & O 10/09/19 07:00 Intake Total 2680 ml Output Total 2850 ml Balance -170 ml Height & Weight Height: '" Weight: lbs. oz. kg; 24.00 BMI Method: General Appearance: No Apparent Distress, WD/WN HEENT: PERRL/EOMI, Pharynx Normal, Other (Dentures in place) Neck: Normal Inspection, Supple; No Thyromegaly Respiratory: Lungs Clear, No Respiratory Distress Cardiovascular: No Murmur, Irregularly Irregular Extremity: Pedal Edema Neurologic/Psychiatric: Alert, Oriented x3 Skin: Normal Color, Warm/Dry Results Lab Laboratory Tests 10/07/19 10:40 10/08/19 03:28 10/09/19 03:35 Assessment/Plan Assessment/Plan Worsening SOB with hypoxia -Oxygen -may need home oxygen prior to discharge -SVNs Q 4 -Check BNP Paroxysmal Afib with RVR -Cardizem gtt -Cardiology following Methamphetamine use Tobacco use -Education NIK POPE DO Oct 09, 2019 08:05 POS
[2019-10-09] MEDS ORDERED: NAPR220T66 PO (08:09)
--- NOTE | 2019-10-09 08:10 | NUR ---
SPOKE WITH PT TO COMPLETE THE MED REC. PT STATES OVER THE LAST COUPLE YEARS SHE HAS QUIT TAKING ALL THE MEDS THAT WERE PRESCRIBED AND THE ONLY THING SHE TAKES IS OTC ALEVE.
--- NOTE | 2019-10-09 08:44 | Progress Note - Hospitalist ---
Subjective HPI/CC On Admission Date Seen by Provider: Oct 09, 2019 Time Seen by Provider: 08:39 Angela Melgar is a 68yoF with PMH paroxysmal atrial fibrillation who presented with malaise, chest pressure, and dyspnea which had been going on for a few weeks. She reports that she has had atrial fibrillation in the past but she says that her doctor took her off of her medications. She does not take any medications on a daily basis at this time. She says she has COPD and has inhalers but only uses that as needed albuterol inhaler. She denies any fevers or chills. She denies any cough. She denies any abdominal pain, nausea, or vomiting. She reportedly used methamphetamine a little less than a week ago. Subjective/Events-last exam Pt reports feeling better today. Denies any complaints. Actually requests discharge home. Objective Exam Vital Signs Vital Signs Date Time Temp Pulse Resp B/P (MAP) Pulse Ox O2 Delivery O2 Flow Rate FiO2 10/09/19 06:00 102 11 94/76 (82) 98 Room Air 10/09/19 00:13 36.8 Capillary Refill : Less Than 3 SecondsNONE General Appearance: No Apparent Distress, WD/WN Respiratory: Lungs Clear, No Accessory Muscle Use, No Respiratory Distress Cardiovascular: No Murmur, Irregularly Irregular Extremity: Pedal Edema (trace) Neurologic/Psychiatric: Alert, Oriented x3, Normal Mood/Affect Results/Procedures Lab Laboratory Tests 10/09/19 03:35 Patient resulted labs reviewed. Imaging: Reviewed Imaging Report Assessment/Plan Assessment and Plan Assess & Plan/Chief Complaint Paroxysmal atrial fibrillation with rapid ventricular response Continue Cardizem orally and digoxin - BP still marginal Continue Eliquis for stroke ppx Cardiology consulted, appreciate recommendations Echo reveals EF of 40-45% Methamphetamine abuse UDS positive for meth - Recommended cessation Nicotine dependence, cigarettes, uncomplicated Nicotine patch and gum available - Recommended Cessation DVT prophylaxis: Already receiving therapeutic anticoagulation Diagnosis/Problems Diagnosis/Problems (1) Atrial fibrillation with rapid ventricular response Status: Acute (2) Methamphetamine abuse Status: Chronic (3) Nicotine dependence, cigarettes, uncomplicated Status: Chronic Clinical Quality Measures DVT/VTE Risk/Contraindication: Risk Factor Score Per Nursin RFS Level Per Nursing on Admit: 4+=Very High AMISHA NAVARRO MD Oct 09, 2019 08:44 POS
[2019-10-09] MEDS ORDERED: FUROSEMIDE 20 MG (LASIX) TAB PO SCH (09:00)
--- NOTE | 2019-10-09 09:44 | Progress Note - Cardiology ---
Cardiology SOAP Progress Note Subjective: In bed. Denies any c/o CP or palpitations. Feels breathing is better. Reports freq cough. C/O fatigue Objective: I&O/Vital Signs 10/09/19 10/09/19 10/09/19 10/09/19 19:48 19:48 20:00 20:00 Temp 36.8 36.8 Pulse 85 B/P (MAP) 110/84 (93) Pulse Ox 100 98 O2 Delivery Room Air Room Air 10/09/19 10/09/19 10/09/19 10/10/19 20:52 22:00 22:28 00:00 Temp 36.5 Pulse 91 85 93 Resp 11 20 22 B/P (MAP) 116/76 (89) 107/74 (85) Pulse Ox 98 97 100 95 O2 Delivery Nasal Cannula Room Air Room Air Room Air O2 Flow Rate 2.00 10/10/19 10/10/19 10/10/19 10/10/19 00:00 01:00 02:21 04:00 Pulse 91 91 Resp 14 B/P (MAP) 103/68 (80) Pulse Ox 96 100 100 O2 Delivery Room Air Room Air Room Air 10/10/19 10/10/19 04:41 04:43 Temp 36.6 Pulse 97 Resp 20 B/P (MAP) 103/68 (80) Pulse Ox 100 96 O2 Delivery Room Air Room Air 10/10/19 00:00 Intake Total 1240 ml Output Total 3200 ml Balance -1960 ml Constitutional: AAO x 3, well-developed, well-nourished Respiratory: No accessory muscle use; other (Good bilateral air entry) Cardiovascular: regular rate-rhythm, S1 and S2, systolic murmur (soft CORTNEY at [place] base) Gastrointestional: No tender; soft; No guarding, No rebound; audible bowel sounds Extremities: swelling (mild, bilateral leg swelling); No clubbing, No cyanosis Neurologic/Psychiatric: oriented x 3, other (moves all limbs equally) Skin: No rash on exposed areas, No ulcerations on exposed areas Results/Procedures: Labs Laboratory Tests 10/10/19 03:15: White Blood Count 5.5, Red Blood Count 4.62, Hemoglobin 13.4, Hematocrit 42, Mean Corpuscular Volume 91, Mean Corpuscular Hemoglobin 29, Mean Corpuscular Hemoglobin Concent 32, Red Cell Distribution Width 14.1, Platelet Count 196, Mean Platelet Volume 9.9, Prothrombin Time 15.9H, INR Comment 1.2, Activated Partial Thromboplast Time 31, Sodium Level 141, Potassium Level 3.8, Chloride Level 105, Carbon Dioxide Level 25, Anion Gap 11, Blood Urea Nitrogen 14, Creatinine 0.76, Estimat Glomerular Filtration Rate > 60, BUN/Creatinine Ratio 18, Glucose Level 112H, Calcium Level 8.9, Phosphorus Level 5.4H, Magnesium Level 1.6 Procedures NAME: JAMIE FARR [facility] REC#: [id number] PT STATUS: ADM IN : 1955 PHYSICIAN: NIK POPE DO ADMIT DATE: 10/07/19/ICU Draft Date of Exam:10/09/19 CHEST 1 VIEW, AP/PA ONLY Examination: Chest, single frontal view INDICATION: Dyspnea. COMPARISON: Multiple priors, most recent performed on 10/08/2019. FINDINGS: No significant change in marked left basilar consolidation. Trace right pleural effusion and mild left basilar atelectasis are also unchanged. No pneumothorax is appreciated. There is unchanged cardiomegaly. There is persistent central vascular congestion, without overt edema. No acute osseous abnormalities demonstrated. IMPRESSION: Left basilar consolidation is unchanged, representing pleural effusion, atelectasis, pneumonia, or any combination of these. Unchanged small right pleural effusion and right basilar atelectasis. Unchanged moderate cardiomegaly and central vascular congestion, without overt edema. Dictated on workstation # [id number] Dict: 10/09/19 0753 Trans: 10/09/19 0801 [facility] [id number] Interpreted by: TIEN KEVIN DO Electronically signed by: A/P: Assessment: A Fib with RVR, age of onset undetermined Echocardiogram of 10-08-19 showed LVEF 40-45%. Mod diffuse hyokinesis. LA and RA mod dilated. Mod MR and TR. Left pleural effusion. RVSP 34 mmHg. Intermittently low bp TSH normal on 10/08/19 (0.82) Chronic tobacco use: smokes cigarettes H/O methamphetamine use (test + at time of admission) Plan: * Plan for cardiac cath tomorrow * Low bp is an issue * Continue reduced dose of Cardizem * Continue current dose of digoxin (for rate control w/o lowering bp) * Continue iv fluids * Oral apixaban or stroke and DVT prophylaxis * Monitor labs * Echocardiogram * Advised to quit smoking immediately and completely * OK to transfer to [facility] with tele RITA SNOW Oct 09, 2019 09:44 POS
[2019-10-09] MEDS: RT-ALBUTEROL/IPRATROPIUM 3 ML (DUONEB) VIAL INH SCH ×4 (13:16→22:28)
--- NOTE | 2019-10-09 13:35 | Progress Note - Cardiology ---
Cardiology SOAP Progress Note Subjective: No cp or palp or syncope Tires easily No shortness of breath at rest Gen weakness present Objective: I&O/Vital Signs 10/09/19 10/09/19 10/09/19 10/09/19 02:12 03:00 04:00 04:00 Pulse 88 101 89 Resp 13 15 11 B/P (MAP) 93/63 (73) 116/89 (98) 94/78 (83) Pulse Ox 97 96 93 95 O2 Delivery Room Air Room Air Room Air Room Air 10/09/19 10/09/19 10/09/19 10/09/19 05:00 06:00 07:00 07:00 Pulse 101 102 94 105 Resp 11 14 B/P (MAP) 94/76 (82) 102/74 (83) Pulse Ox 98 99 O2 Delivery Room Air Room Air Room Air 10/09/19 10/09/19 10/09/19 10/09/19 08:00 08:00 08:00 09:00 Temp 36.1 Pulse 97 103 Resp 14 16 B/P (MAP) 116/85 (95) 117/87 (97) Pulse Ox 94 96 96 O2 Delivery Room Air Room Air Room Air 10/09/19 10/09/19 10/09/19 10:00 11:00 12:00 Pulse 103 95 104 Resp 14 12 17 B/P (MAP) 100/84 (89) 117/85 (96) Pulse Ox 100 95 98 O2 Delivery Room Air Room Air Room Air 10/09/19 00:00 Intake Total 2080 ml Output Total 1400 ml Balance 680 ml Constitutional: AAO x 3, well-developed, well-nourished Respiratory: No accessory muscle use; other (Good bilateral air entry) Cardiovascular: regular rate-rhythm, S1 and S2, systolic murmur (soft CORTNEY at card base) Gastrointestional: No tender; soft; No guarding, No rebound; audible bowel sounds Extremities: swelling (mild, bilateral leg swelling); No clubbing, No cyanosis Neurologic/Psychiatric: oriented x 3, other (moves all limbs equally) Skin: No rash on exposed areas, No ulcerations on exposed areas Results/Procedures: Labs Laboratory Tests 10/09/19 03:35: White Blood Count 5.2, Red Blood Count 4.60, Hemoglobin 13.4, Hematocrit 42, Mean Corpuscular Volume 92, Mean Corpuscular Hemoglobin 29, Mean Corpuscular Hemoglobin Concent 32, Red Cell Distribution Width 14.4, Platelet Count 200, Mean Platelet Volume 9.8, Neutrophils (%) (Auto) 52, Lymphocytes (%) (Auto) 28, Monocytes (%) (Auto) 17H, Eosinophils (%) (Auto) 2, Basophils (%) (Auto) 1, Neutrophils # (Auto) 2.7, Lymphocytes # (Auto) 1.5, Monocytes # (Auto) 0.9, Eosinophils # (Auto) 0.1, Basophils # (Auto) 0.0, Sodium Level 138, Potassium Level 4.0, Chloride Level 107, Carbon Dioxide Level 22, Anion Gap 9, Blood Urea Nitrogen 13, Creatinine 0.79, Estimat Glomerular Filtration Rate > 60, BUN/Creatinine Ratio 16, Glucose Level 91, Calcium Level 8.6, Phosphorus Level 4.6, Magnesium Level 1.7, B-Type Natriuretic Peptide 282.4H, Digoxin Level < 0.30L A/P: Assessment: A Fib with RVR, age of onset undetermined Dilated cardiomyopathy. Echocardiogram of 10-08-19 showed LVEF 40-45%. Mod diffuse hyokinesis. LA and RA mod dilated. Mod MR and TR. Left pleural effusion. RVSP 34 mmHg. Intermittently low bp TSH normal on 10/08/19 (0.82) Chronic tobacco use: smokes cigarettes H/O methamphetamine use (test + at time of admission) Plan: * Given newly diagnosed cm, we recommend card cath. We reviewed the rationale, procedure, risks, benefits, potential complications and alternatives of card cath and possible ad hoc cor intervention. She understands and provides informed consent * Plan for cardiac cath tomorrow * Continue reduced dose of Cardizem * Continue current dose of digoxin (for rate control w/o lowering bp) * D/c iv fluids * Oral apixaban or stroke and DVT prophylaxis * Advised to quit smoking immediately and completely * OK to transfer to [facility] with RADHA Granados MD FACP [facility] CCDS Oct 09, 2019 13:35 POS
[2019-10-09] MEDS: ALPRAZolam 0.25 MG (XANAX) TAB PO PRN (20:48)
[2019-10-10] VITALS: BP 107/74
[2019-10-10] MEDS: RT-ALBUTEROL/IPRATROPIUM 3 ML (DUONEB) VIAL INH SCH ×6 (02:20→22:40)
[2019-10-10 03:32] LABS: HEMOGLOBIN 13.4 G/DL (11.5-16.0); MEAN PLATELET VOLUME 9.9 FL (7.4-10.4); RED CELL DISTRIBUTION WIDTH 14.1 % (10.0-14.5); WHITE BLOOD COUNT 5.5 10^3/uL (4.3-11.0)
[2019-10-10 03:45] LABS: INR 1.2 (0.8-1.4); PROTHROMBIN TIME PATIENT 15.9 SEC (12.2-14.7)
[2019-10-10 03:58] LABS: BUN/CREATININE RATIO 18; CALCIUM 8.9 MG/DL (8.5-10.1); CARBON DIOXIDE 25 MMOL/L (21-32); CHLORIDE 105 MMOL/L (98-107); CREATININE SERUM 0.76 MG/DL (0.60-1.30); GFR ESTIMATED > 60; GLUCOSE 112 MG/DL (70-105); MAGNESIUM 1.6 MG/DL (1.6-2.4); PHOSPHORUS 5.4 MG/DL (2.3-4.7); POTASSIUM 3.8 MMOL/L (3.6-5.0); SODIUM 141 MMOL/L (135-145)
[2019-10-10 04:00] VITALS: BP 103/68
[2019-10-10 04:41] VITALS: BP 103/68
--- NOTE | 2019-10-10 05:34 | Pulmonary Progress Note ---
Subjective Time Seen by a Provider: 03:57 Subjective/Events-last exam Plan is for cath today. Sepsis Event Evaluation Height, Weight, BMI Height: '" Weight: lbs. oz. kg; 24.00 BMI Method: Exam Exam Vital Signs Date Time Temp Pulse Resp B/P (MAP) Pulse Ox O2 Delivery O2 Flow Rate FiO2 10/10/19 04:43 96 Room Air 10/10/19 04:41 36.6 97 20 103/68 (80) 100 Room Air 10/10/19 02:21 100 Room Air 10/10/19 01:00 91 10/10/19 00:00 96 Room Air 10/10/19 00:00 36.5 93 22 107/74 (85) 95 Room Air 10/09/19 22:28 100 Room Air 10/09/19 22:00 85 20 116/76 (89) 97 Room Air 10/09/19 20:52 91 11 98 Nasal Cannula 2.00 10/09/19 20:00 98 Room Air 10/09/19 20:00 85 110/84 (93) 100 Room Air 10/09/19 19:48 36.8 10/09/19 19:48 36.8 10/09/19 19:16 95 Room Air 10/09/19 19:00 95 10/09/19 18:00 89 39 118/62 (80) 90 Room Air 10/09/19 17:00 93 14 125/81 (96) 97 Room Air 10/09/19 16:00 83 18 100/78 (85) 99 Room Air 10/09/19 16:00 98 Room Air 10/09/19 15:36 37.0 10/09/19 15:00 78 116/81 (93) Room Air 10/09/19 14:57 93 Room Air 10/09/19 14:00 92 20 90/68 (75) 98 Room Air 10/09/19 13:00 80 19 117/60 (79) 99 Room Air 10/09/19 13:00 98 10/09/19 12:00 95 Room Air 10/09/19 12:00 104 17 117/85 (96) 98 Room Air 10/09/19 11:25 36.7 10/09/19 11:00 95 12 100/84 (89) 95 Room Air 10/09/19 10:00 103 14 100 Room Air 10/09/19 09:00 103 16 117/87 (97) 96 Room Air 10/09/19 08:00 36.1 10/09/19 08:00 97 14 116/85 (95) 96 Room Air 10/09/19 08:00 94 Room Air 10/09/19 07:00 105 14 102/74 (83) 99 Room Air 10/09/19 07:00 94 10/09/19 06:00 102 11 94/76 (82) 98 Room Air I & O 10/10/19 07:00 Intake Total 1490 ml Output Total 3800 ml Balance -2310 ml Height & Weight Height: '" Weight: lbs. oz. kg; 24.00 BMI Method: General Appearance: No Apparent Distress, WD/WN HEENT: PERRL/EOMI, Pharynx Normal, Other (Dentures in place) Neck: Normal Inspection, Supple; No Thyromegaly Respiratory: Lungs Clear, No Respiratory Distress Cardiovascular: No Murmur, Irregularly Irregular Extremity: Pedal Edema Neurologic/Psychiatric: Alert, Oriented x3 Skin: Normal Color, Warm/Dry Results Lab Laboratory Tests 10/09/19 03:35 10/10/19 03:15 Assessment/Plan Assessment/Plan Worsening SOB with hypoxia -Oxygen -may need home oxygen prior to discharge -SVNs Q 4 -Change lasix to IV Paroxysmal Afib with RVR -Cardizem gtt -Cardiology following Methamphetamine use Tobacco use -Education NIK POPE DO Oct 10, 2019 05:34 POS
[2019-10-10] MEDS: MAGNESIUM 1 GM/100 ML IVPB 100 ML IV SCH ×3 (05:54→06:43)
[2019-10-10] MEDS: POTASSIUM CL 10MEQ/50ML IVPB 50 ML IV SCH ×5 (05:54→19:15)
[2019-10-10] MEDS: KCL 20 MEQ TAB (K-DUR) PO SCH (06:43)
--- NOTE | 2019-10-10 06:53 | Diagnostic Imaging Report ---
INDICATION: Dyspnea, shortness of breath. TECHNIQUE: Single view chest 6:08 AM. CORRELATION STUDY: 10/09/2019 FINDINGS: Heart size, mediastinum and vasculature overall generally stable. Continued consolidation at the left lung base along with effusion persists not significantly changed. Likely small right pleural effusion as well. IMPRESSION: 1. Combination of consolidation along with effusion left lung base stable to perhaps minimally improved. Small right pleural effusion. 2. Heart size and vasculature appears generally stable remaining mildly prominent. Dictated by: Dictated on workstation # [id number]
[2019-10-10] MEDS ORDERED: LIDOCAINE 1% INJ 20 ML 20 ML VIAL ONE (06:58)
[2019-10-10] MEDS ORDERED: HEParin (CATH LAB) 2,000 ML IV ONE (06:58)
--- NOTE | 2019-10-10 08:30 | NUR ---
REPORT RECEIVED AND PATIENT ASSESSED. PT HAD NO COMPLAINTS. BED IS IN LOW POSITION WITH CALL LIGHT WITHIN REACH. BP IS SOFT WITH SBP 100. PT AWAITS [employer], UNKNOWN WHAT TIME. FAMILY UPDATED.
[2019-10-10 09:00] VITALS: BP 100/71
[2019-10-10] MEDS ORDERED: FUROSEMIDE 40 MG/4 ML INJ (LASIX) IVP SCH (09:00)
[2019-10-10] MEDS: DOCUSATE SODIUM 100 MG (COLACE) CAP PO SCH ×2 (09:13→20:22)
[2019-10-10] MEDS: ALPRAZolam 0.25 MG (XANAX) TAB PO PRN ×2 (09:13→20:21)
[2019-10-10] MEDS: DIGOXIN 0.25 MG (LANOXIN) TAB PO SCH (09:13)
[2019-10-10] MEDS: DILTIAZEM 180 MG (CARDIZEM CD) CAP PO SCH (09:13)
[2019-10-10] MEDS: APIXABAN 5 MG (ELIQUIS) TABLET PO SCH ×2 (09:52→20:21)
--- NOTE | 2019-10-10 09:53 | NUR ---
PT COMPLAIN OF INCREASED SOA. HAS EXPIRATORY WHEEZES IN ALL LIM. RT NOTIFIED FOR TREATMENT. PT MORNING MEDS ADMINISTERED EXCEPT ELIQUIS. SBP WAS 100. WILL HOLD LASIX FOR NOW. XANAX HELD FOR NOW TO ASSESS BP AFTER MORNING MEDS ADMINISTERED.
[2019-10-10 12:00] VITALS: BP 110/76
[2019-10-10] MEDS ORDERED: DILT180C90 PO (14:34)
[2019-10-10] MEDS ORDERED: DIGO250T15 PO (14:34)
[2019-10-10] MEDS ORDERED: APIX5TAB PO (14:34)
--- NOTE | 2019-10-10 14:38 | Progress Note - Hospitalist ---
Subjective HPI/CC On Admission Date Seen by Provider: Oct 10, 2019 Time Seen by Provider: 14:36 Angela Melgar is a 68yoF with PMH paroxysmal atrial fibrillation who presented with malaise, chest pressure, and dyspnea which had been going on for a few weeks. She reports that she has had atrial fibrillation in the past but she says that her doctor took her off of her medications. She does not take any medications on a daily basis at this time. She says she has COPD and has inhalers but only uses that as needed albuterol inhaler. She denies any fevers or chills. She denies any cough. She denies any abdominal pain, nausea, or vomiting. She reportedly used methamphetamine a little less than a week ago. Subjective/Events-last exam Pt reports feeling better. Plan for cath today. Patient agreeable to that. Objective Exam Vital Signs Vital Signs Date Time Temp Pulse Resp B/P (MAP) Pulse Ox O2 Delivery O2 Flow Rate FiO2 10/10/19 12:22 36.8 10/10/19 12:00 98 13 110/76 (87) 100 Room Air 10/09/19 20:52 2.00 Capillary Refill : Less Than 3 SecondsNONE General Appearance: No Apparent Distress, Chronically ill Respiratory: Lungs Clear, No Respiratory Distress Cardiovascular: No Murmur, Irregularly Irregular Gastrointestinal: Normal Bowel Sounds, Non Tender, Soft Neurologic/Psychiatric: Alert, Oriented x3, Normal Mood/Affect Results/Procedures Lab Laboratory Tests 10/10/19 03:15 Patient resulted labs reviewed. Imaging: Reviewed Imaging Report Assessment/Plan Assessment and Plan Assess & Plan/Chief Complaint Paroxysmal atrial fibrillation with rapid ventricular response Systolic CHF Continue Cardizem orally and digoxin - BP improved Continue Eliquis for stroke ppx Cardiology consulted, appreciate recommendations Echo reveals EF of 40-45% - Cath today Methamphetamine abuse UDS positive for meth - Recommended cessation Nicotine dependence, cigarettes, uncomplicated Nicotine patch and gum available - Recommended Cessation DVT prophylaxis: Already receiving therapeutic anticoagulation Diagnosis/Problems Diagnosis/Problems (1) Atrial fibrillation with rapid ventricular response Status: Acute (2) Methamphetamine abuse Status: Chronic (3) Nicotine dependence, cigarettes, uncomplicated Status: Chronic (4) CHF (congestive heart failure) Status: Acute Qualifiers: Heart failure type: systolic Heart failure chronicity: acute on chronic Qualified Codes: I50.23 - Acute on chronic systolic (congestive) heart failure Clinical Quality Measures DVT/VTE Risk/Contraindication: Risk Factor Score Per Nursin RFS Level Per Nursing on Admit: 4+=Very High AMISHA NAVARRO MD Oct 10, 2019 14:38 POS
[2019-10-10] MEDS ORDERED: fentaNYL INJECTION 100 MCG/2 ML AMP ONE (14:41)
[2019-10-10] MEDS ORDERED: MIDAZOLAM 5 MG/5 ML (VERSED) VIAL ONE (14:42)
[2019-10-10] MEDS ORDERED: NS IV 1000 ML 1,000 ML ONE (15:02)
--- NOTE | 2019-10-10 15:50 | NUR ---
PT ARRIVES BACK FROM [employer]. RESTING QUIETLY WITH EYES CLOSED IN NAD. RIGHT GROIN SITE SOFT, NONTENDER AND BENIGN. DRESSING IN PLACE. FAMILY AND PATIENT EDUCATED ON BEDREST AND RESTRICTIONS POST CATH. VERBALIZED UNDERSTANDING.
[2019-10-10] MEDS ORDERED: NS IV 1000 ML 1,000 ML IV SCH (15:54)
--- NOTE | 2019-10-10 15:54 | Cardiac Procedure Note-CS/ASA ---
Pre-Procedure Note Pre-Op Procedure Note H&P Reviewed The H&P was reviewed, patient examined and no changes noted. Date H&P Reviewed: Oct 10, 2019 Time H&P Reviewed: 15:15 Conscious Sedation Pre-Proced Time 15:15 ASA Score 3 For ASA 3 and 4: Consider anesthesia and medical clearance. Also, for patients with a history of failed moderate sedation consider anesthesia. Airway Lungs Heart ASA score ASA 1: a normal healthy patient ASA 2: a patient with a mild systemic disease (mid diabetes, controlled hypertension, obesity ASA 3: a patient with a severe systemic disease that limits activity (angina, COPD, prior Myocardial infarction) ASA 4: a patient with an incapacitating disease that is a constant threat to life (CHF, renal failure) ASA 5: a moribund patient not expected to survive 24 hrs. (ruptured aneurysm) ASA 6: a declared brain- patient whose organs are being harvested. For emergent operations, add the letter E after the classification Mallampati Classification Grade 2 Sedation Plan Analgesia, Amnesia, Plan communicated to team members, Discussed options with patient/fam, Discussed risks with patient/fam The patient is an appropriate candidate to undergo the planned procedure, sedation, and anesthesia. The patient immediately re-assessed prior to indication. RADHA GRAVES MD FACP FAC CCDS Oct 10, 2019 15:54 POS
[2019-10-10] MEDS ORDERED: PATIENT MAY USE OWN MEDS, ALL PO SCH (16:00)
--- NOTE | 2019-10-10 16:00 | Progress Note - Cardiology ---
Cardiology SOAP Progress Note Subjective: Gen malaise and weakness Short of breath with mild exertion No cp or palp or syncope No N/V No leg swelling Objective: I&O/Vital Signs 10/10/19 10/10/19 10/10/19 10/10/19 04:00 04:41 04:43 07:00 Temp 36.6 Pulse 91 97 78 Resp 14 20 B/P (MAP) 103/68 (80) 103/68 (80) Pulse Ox 100 100 96 O2 Delivery Room Air Room Air Room Air 10/10/19 10/10/19 10/10/19 10/10/19 07:56 08:00 09:00 09:12 Temp 36.4 36.4 Pulse 82 Resp 14 B/P (MAP) 100/71 (81) Pulse Ox 96 100 O2 Delivery Room Air Room Air 10/10/19 10/10/19 10/10/19 10:20 12:00 12:22 Temp 36.8 Pulse 98 Resp 13 B/P (MAP) 110/76 (87) Pulse Ox 100 100 O2 Delivery Room Air Room Air 10/10/19 00:00 Intake Total 1240 ml Output Total 3200 ml Balance -1960 ml Constitutional: AAO x 3, well-developed, well-nourished Respiratory: No accessory muscle use; other (Good bilateral air entry) Cardiovascular: regular rate-rhythm, S1 and S2, systolic murmur (soft CORTNEY at card base) Gastrointestional: No tender; soft; No guarding, No rebound; audible bowel sounds Extremities: swelling (mild, bilateral leg swelling); No clubbing, No cyanosis Neurologic/Psychiatric: oriented x 3, other (moves all limbs equally) Skin: No rash on exposed areas, No ulcerations on exposed areas Results/Procedures: Labs Laboratory Tests 10/10/19 03:15: White Blood Count 5.5, Red Blood Count 4.62, Hemoglobin 13.4, Hematocrit 42, Mean Corpuscular Volume 91, Mean Corpuscular Hemoglobin 29, Mean Corpuscular Hemoglobin Concent 32, Red Cell Distribution Width 14.1, Platelet Count 196, Mean Platelet Volume 9.9, Prothrombin Time 15.9H, INR Comment 1.2, Activated Partial Thromboplast Time 31, Sodium Level 141, Potassium Level 3.8, Chloride Level 105, Carbon Dioxide Level 25, Anion Gap 11, Blood Urea Nitrogen 14, Creatinine 0.76, Estimat Glomerular Filtration Rate > 60, BUN/Creatinine Ratio 18, Glucose Level 112H, Calcium Level 8.9, Phosphorus Level 5.4H, Magnesium Level 1.6 Laboratory Tests 10/09/19 03:35 10/10/19 03:15 A/P: Assessment: A Fib with RVR, age of onset undetermined, first diagnosed on 10/07/19 Dilated cardiomyopathy. Echocardiogram of 10-08-19 showed LVEF 40-45%. Mod diffuse hyokinesis. LA and RA mod dilated. Mod MR and TR. Left pleural effusion. RVSP 34 mmHg. Card cath of 10/10/19: no significant CAD, LVEDP 9 mmHg, mod global hypokinesis of LV, LVEF 35-40% Intermittently low bp TSH normal on 10/08/19 (0.82) Chronic tobacco use: smokes cigarettes H/O methamphetamine use (test + at time of admission) Plan: * Complex managment. I discussed her cath finding with her in detail * Given dilated cm and ac sys CHF, we recommend therapy with carvedilol, JUSTINO- inhib, furosemide, spironolactone * D/c dilt to provide more room on bp * Continue dig for vent rate control * Oral apixaban or stroke and DVT prophylaxis * Advised to quit smoking immediately and completely * Replenish RADHA Wheatley MD FACP FAC CCDS Oct 10, 2019 16:00 POS
[2019-10-10 18:00] VITALS: BP 115/68
--- NOTE | 2019-10-10 20:18 | CARDIAC CATHETERIZATION ---
DATE OF SERVICE: CARDIAC CATHETERIZATION The patient is 63-year-old lady admitted to this hospital on 10/07/2019 with atrial fibrillation with rapid ventricular response and subsequent workup has shown dilated cardiomyopathy and there is evidence of congestive heart failure. Congestive heart failure has been treated. Cardiac catheterization was recommended for further evaluation. Informed consent was obtained. DESCRIPTION OF PROCEDURE: She was brought to the cardiac catheterization laboratory in a fasting state. Right groin was prepared and draped in the usual sterile fashion. Lidocaine 1% was used for local anesthesia. Modified Seldinger technique was used to advance a 5-Azerbaijani sheath in right femoral artery, 5-Azerbaijani JL4 catheter for left coronary angiography, 5-Azerbaijani JR4 catheter for right coronary angiography, 5-Azerbaijani pigtail catheter was used for left heart catheterization, left ventricular angiography. The pigtail catheter was pulled back to the aortic root and aortic root angiography was performed. Aortic root angiography was performed because the left anterior descending artery appeared relatively small and we wanted to be sure that there were no anomalous coronary vessels. None were found. At the end of the procedure, following removal of the diagnostic catheters, Mynx was used to achieve hemostasis following sheath removal. Angiography of the right femoral artery had been carried out through the sheath at the beginning of the procedure. Overall, the patient tolerated the procedure well. HEMODYNAMICS: Left ventricular end-diastolic pressure following coronary angiography was 8 mmHg. There is no significant pressure gradient on pullback across the aortic valve. Ascending aortic pressure was 90/60 with a mean of 63 mmHg. CORONARY ANGIOGRAPHY: Left main coronary artery is free of any significant disease. Left anterior descending artery is free of significant disease. Left circumflex artery is free of significant disease. Right coronary artery is free of significant disease. Left circumflex artery is dominant. LEFT VENTRICULAR ANGIOGRAPHY: Left ventricular angiography was carried out in the right anterior oblique projection. There is moderate global hypokinesis. Left ventricular ejection fraction is approximately 35% to 40%. AORTIC ROOT ANGIOGRAPHY: Aortic root angiography was performed to look for any anomalous coronary vessels. No anomalous coronary vessels were seen. Aortic root does not appear enlarged. There is no significant aortic regurgitation. CONCLUSIONS: 1. No angiographically significant coronary artery disease. 2. Impairment of global left ventricular systolic function with an ejection fraction of 35% to 40%. There is moderate global hypokinesis. 3. Normal left ventricular end-diastolic pressure. DISCUSSION AND RECOMMENDATIONS: Based on results of the study, it appears appropriate to continue a conservative approach. Job ID: [id number] DocumentID: [id number] Dictated Date: 10/10/2019 15:47:46 [employer] Date: 10/10/2019 20:18:27 Dictated By: RADHA GRAVES MD, MA, FACP, FACC,
[2019-10-10] MEDS: CARVEDILOL 6.25 MG (COREG) TAB PO SCH (20:21)
[2019-10-11] VITALS: BP 113/81
[2019-10-11] MEDS: RT-ALBUTEROL/IPRATROPIUM 3 ML (DUONEB) VIAL INH SCH ×3 (03:01→10:47)
--- NOTE | 2019-10-11 03:57 | Pulmonary Progress Note ---
Subjective Time Seen by a Provider: 03:56 Subjective/Events-last exam S/p Cath Pt is doing better. Sepsis Event Evaluation Height, Weight, BMI Height: '" Weight: lbs. oz. kg; 24.00 BMI Method: Exam Exam Vital Signs Date Time Temp Pulse Resp B/P (MAP) Pulse Ox O2 Delivery O2 Flow Rate FiO2 10/11/19 03:01 94 Room Air 10/11/19 01:00 80 10/11/19 00:00 89 21 113/81 (92) 96 Room Air 10/10/19 22:41 94 Room Air 10/10/19 21:00 98 Room Air 10/10/19 21:00 98 Room Air 10/10/19 19:39 99 Room Air 10/10/19 19:00 92 10/10/19 18:00 84 17 115/68 (84) 98 Room Air 10/10/19 13:50 96 Room Air 10/10/19 13:00 83 10/10/19 12:22 36.8 10/10/19 12:00 98 13 110/76 (87) 100 Room Air 10/10/19 10:20 100 Room Air 10/10/19 09:12 36.4 10/10/19 09:00 36.4 100/71 (81) 10/10/19 08:00 82 14 100 Room Air 10/10/19 07:56 96 Room Air 10/10/19 07:00 78 10/10/19 04:43 96 Room Air 10/10/19 04:41 36.6 97 20 103/68 (80) 100 Room Air 10/10/19 04:00 91 14 103/68 (80) 100 Room Air I & O 10/11/19 07:00 Intake Total 970 ml Output Total 400 ml Balance 570 ml Height & Weight Height: '" Weight: lbs. oz. kg; 24.00 BMI Method: General Appearance: No Apparent Distress, Chronically ill HEENT: PERRL/EOMI, Pharynx Normal, Other (Dentures in place) Neck: Normal Inspection, Supple; No Thyromegaly Respiratory: Lungs Clear, No Respiratory Distress Cardiovascular: No Murmur, Irregularly Irregular Extremity: Pedal Edema Neurologic/Psychiatric: Alert, Oriented x3, Normal Mood/Affect Skin: Normal Color, Warm/Dry Results Lab Laboratory Tests 10/10/19 03:15 Assessment/Plan Assessment/Plan Worsening SOB with hypoxia -Oxygen -may need home oxygen prior to discharge -SVNs Q 4 -Change lasix to IV Paroxysmal Afib/flutter - controlled -S/p cath - no stent placed -Cardiology following Methamphetamine use Tobacco use -Education Probable home today. Labs and CXR are pending currently. NIK POPE DO Oct 11, 2019 03:57 POS
[2019-10-11 04:00] VITALS: BP 115/74
[2019-10-11 04:14] LABS: HEMOGLOBIN 14.4 G/DL (11.5-16.0); MEAN PLATELET VOLUME 10.4 FL (7.4-10.4); RED CELL DISTRIBUTION WIDTH 14.2 % (10.0-14.5); WHITE BLOOD COUNT 7.7 10^3/uL (4.3-11.0)
[2019-10-11 04:39] LABS: BUN/CREATININE RATIO 19; CALCIUM 9.2 MG/DL (8.5-10.1); CARBON DIOXIDE 24 MMOL/L (21-32); CHLORIDE 103 MMOL/L (98-107); CREATININE SERUM 0.79 MG/DL (0.60-1.30); GFR ESTIMATED > 60; GLUCOSE 103 MG/DL (70-105); MAGNESIUM 1.9 MG/DL (1.6-2.4); PHOSPHORUS 5.2 MG/DL (2.3-4.7); POTASSIUM 4.3 MMOL/L (3.6-5.0); SODIUM 140 MMOL/L (135-145)
[2019-10-11] MEDS: POTASSIUM CL 10MEQ/50ML IVPB 50 ML IV SCH (04:55)
[2019-10-11] MEDS: KCL 20 MEQ TAB (K-DUR) PO SCH (04:56)
[2019-10-11] MEDS: MAGNESIUM 1 GM/100 ML IVPB 100 ML IV SCH (04:56)
--- NOTE | 2019-10-11 08:29 | Discharge Summary ---
Diagnosis/Chief Complaint Date of Admission Oct 07, 2019 at 12:30 Date of Discharge Discharge Date: Oct 10, 2019 Admission Diagnosis Paroxysmal atrial fibrillation with rapid ventricular response Primary Care No,Local Physician Discharge Diagnosis (1) Atrial fibrillation with rapid ventricular response Status: Acute (2) Methamphetamine abuse Status: Chronic (3) Nicotine dependence, cigarettes, uncomplicated Status: Chronic (4) CHF (congestive heart failure) Status: Acute Discharge Summary Procedures/Consulations Pulm- Dr Armando Cardiology- Dr Owens Discharge Physical Exam Allergies: Coded Allergies: No Known Drug Allergies (Unverified , 10/07/19) Vitals & I&Os Vital Signs Date Time Temp Pulse Resp B/P (MAP) Pulse Ox O2 Delivery O2 Flow Rate FiO2 10/11/19 06:35 97 Room Air 10/11/19 04:00 36.5 10/11/19 04:00 80 18 115/74 (88) 10/09/19 20:52 2.00 General Appearance: No Apparent Distress, Chronically ill Respiratory: Lungs Clear, No Respiratory Distress Cardiovascular: No Murmur, Irregularly Irregular Gastrointestinal: Normal Bowel Sounds, Non Tender, Soft Neurologic/Psychiatric: Alert, Oriented x3 Hospital Course Patient is a 63-year-old female with a past medical history of atrial fibrillation who presented with atrial fibrillation with rapid ventricular rate. She was admitted to the ICU and started on Cardizem drip and responded well. She was transitioned to oral Cardizem and had significant hypotension with that so that was discontinued and she was started on digoxin. Echo was done and showed an ejection fraction of 40 percent. Cardiac catheterization was done and showed no significant coronary artery disease and no stents were placed. She was started on Eliquis for stroke prophylaxis. She is to follow up with [facility] and Dr Owens. I advised very strongly on the need to quit use of meth and tobacco and she expressed understanding. Labs (last 24 hrs) Laboratory Tests 10/11/19 03:15: White Blood Count 7.7, Red Blood Count 4.88, Hemoglobin 14.4, Hematocrit 45, Mean Corpuscular Volume 91, Mean Corpuscular Hemoglobin 30, Mean Corpuscular Hemoglobin Concent 32, Red Cell Distribution Width 14.2, Platelet Count 218, Mean Platelet Volume 10.4, Sodium Level 140, Potassium Level 4.3, Chloride Level 103, Carbon Dioxide Level 24, Anion Gap 13, Blood Urea Nitrogen 15, Creatinine 0.79, Estimat Glomerular Filtration Rate > 60, BUN/Creatinine Ratio 19, Glucose Level 103, Calcium Level 9.2, Phosphorus Level 5.2H, Magnesium Level 1.9, Digox in Level 0.52L Microbiology 10/09/19 MRSA Screen - Preliminary, Resulted MRSA not isolated Patient resulted labs reviewed. Pending Labs Laboratory Tests 10/11/19 03:15: White Blood Count 7.7, Red Blood Count 4.88, Hemoglobin 14.4, Hematocrit 45, Mean Corpuscular Volume 91, Mean Corpuscular Hemoglobin 30, Mean Corpuscular Hemoglobin Concent 32, Red Cell Distribution Width 14.2, Platelet Count 218, Mean Platelet Volume 10.4, Sodium Level 140, Potassium Level 4.3, Chloride Level 103, Carbon Dioxide Level 24, Anion Gap 13, Blood Urea Nitrogen 15, Creatinine 0.79, Estimat Glomerular Filtration Rate > 60, BUN/Creatinine Ratio 19, Glucose Level 103, Calcium Level 9.2, Phosphorus Level 5.2, Magnesium Level 1.9, Digoxin Level 0.52 Imaging: Reviewed Imaging Report Discussion & Recommendations Discharge Planning: >30 minutes discharge planning Discharge Home Medications: Active Scripts Active Reported Aleve (Naproxen Sodium) 220 Mg Tablet 440 Mg PO Q8H PRN Instructions to patient/family Please see electronic discharge instructions given to patient. Clinical Quality Measures DVT/VTE Risk/Contraindication: Risk Factor Score Per Nursin RFS Level Per Nursing on Admit: 4+=Very High Problem Qualifiers (1) CHF (congestive heart failure): Heart failure type: systolic Heart failure chronicity: acute on chronic Qualified Codes: I50.23 - Acute on chronic systolic (congestive) heart failure AMISHA NAVARRO MD Oct 11, 2019 08:28 POS
[2019-10-11 08:30] VITALS: BP 110/72
[2019-10-11] MEDS ORDERED: FURO20TA4 PO (08:32)
[2019-10-11] MEDS ORDERED: CARV6.252 PO (08:32)
[2019-10-11] MEDS ORDERED: SPIR25TA5 PO (08:32)
[2019-10-11] MEDS ORDERED: LISI-556 PO (08:32)
--- NOTE | 2019-10-11 08:35 | Discharge Inst-Simple/Standard ---
Discharge Inst-Standard Reconcile Patient Problems Problems Reviewed?: Yes Discharge Medications New, Converted or Re-Newed RX: Transmitted to Pharmacy Patient Instructions/Follow Up Plan of Care/Instructions/FU: Please continue to take her medications as written. Please follow up with [facility] and with Dr. Perez to follow up this hospital stay. Activity as Tolerated: Yes Discharge Diet: Low Sodium Diet, Cardiac Diet Return to The Hospital For: Chest pain, shortness of breath, palpitations, greater than 5 pound weight gain in 2 days, if you feel you're getting worse. Planned Outpatient Orders/Ref. Pneu Vac Indicated: Yes AMISHA NAVARRO MD Oct 11, 2019 08:35 POS
[2019-10-11] MEDS: DIGOXIN 0.25 MG (LANOXIN) TAB PO SCH (08:38)
[2019-10-11] MEDS: DOCUSATE SODIUM 100 MG (COLACE) CAP PO SCH (08:38)
[2019-10-11] MEDS: CARVEDILOL 6.25 MG (COREG) TAB PO SCH (08:39)
[2019-10-11] MEDS: APIXABAN 5 MG (ELIQUIS) TABLET PO SCH (08:40)
--- NOTE | 2019-10-11 08:50 | Diagnostic Imaging Report ---
INDICATION: Dyspnea, shortness of breath. TECHNIQUE: Single view chest at 3:14 AM. CORRELATION STUDY: 10/10/2019. FINDINGS: There is stable severity cardiac enlargement. The vasculature is overall within normal limits. A combination of effusion along with minimal atelectasis and/or infiltrate at both lung bases, left greater than right, is stable. IMPRESSION: There is a combination of effusion along with atelectasis or infiltrate at the lung bases, left greater than right. The findings are perhaps slightly improved on the left. Dictated by: Dictated on workstation # [id number]
[2019-10-11] MEDS ORDERED: lisINopril 5 MG (PRINIVIL) TABLET PO SCH (09:00)
[2019-10-11] MEDS ORDERED: SPIRONOLACTONE 25 MG (ALDACTONE) TAB PO SCH (09:00)
[2019-10-11] MEDS ORDERED: FUROSEMIDE 20 MG (LASIX) TAB PO SCH (09:00)
--- NOTE | 2019-10-11 09:34 | Progress Note - Cardiology ---
Cardiology SOAP Progress Note Subjective: Feels better compared to time of admission and wishes to go home Denies cp or palp or syncope Denies leg swelling Denies N/V Some gen weakness is present, but improved from time of admission Objective: I&O/Vital Signs 10/10/19 10/11/19 10/11/19 10/11/19 22:41 00:00 00:00 01:00 Temp 36.2 Pulse 89 80 Resp 21 B/P (MAP) 113/81 (92) Pulse Ox 94 96 O2 Delivery Room Air Room Air 10/11/19 10/11/19 10/11/19 10/11/19 03:01 04:00 04:00 06:35 Temp 36.5 Pulse 80 Resp 18 B/P (MAP) 115/74 (88) Pulse Ox 94 96 97 O2 Delivery Room Air Room Air Room Air 10/11/19 08:30 B/P (MAP) 110/72 (85) Pulse Ox 95 O2 Delivery Room Air 10/11/19 00:00 Intake Total 970 ml Balance 970 ml Constitutional: AAO x 3, well-developed, well-nourished Respiratory: No accessory muscle use; other (Good bilateral air entry) Cardiovascular: regular rate-rhythm, S1 and S2, systolic murmur (soft CORTNEY at card base) Gastrointestional: No tender; soft; No guarding, No rebound; audible bowel sounds Extremities: swelling (mild, bilateral leg swelling); No clubbing, No cyanosis Neurologic/Psychiatric: oriented x 3, other (moves all limbs equally) Skin: No rash on exposed areas, No ulcerations on exposed areas Results/Procedures: Labs Laboratory Tests 10/11/19 03:15: White Blood Count 7.7, Red Blood Count 4.88, Hemoglobin 14.4, Hematocrit 45, Mean Corpuscular Volume 91, Mean Corpuscular Hemoglobin 30, Mean Corpuscular Hemoglobin Concent 32, Red Cell Distribution Width 14.2, Platelet Count 218, Mean Platelet Volume 10.4, Sodium Level 140, Potassium Level 4.3, Chloride Level 103, Carbon Dioxide Level 24, Anion Gap 13, Blood Urea Nitrogen 15, Creatinine 0.79, Estimat Glomerular Filtration Rate > 60, BUN/Creatinine Ratio 19, Glucose Level 103, Calcium Level 9.2, Phosphorus Level 5.2H, Magnesium Level 1.9, Digoxin Level 0.52L Microbiology 10/09/19 MRSA Screen - Preliminary, Resulted MRSA not isolated Laboratory Tests 10/10/19 03:15 10/11/19 03:15 A/P: Assessment: A Fib with RVR, age of onset undetermined, first diagnosed on 10/07/19 Dilated cardiomyopathy. Echocardiogram of 10-08-19 showed LVEF 40-45%. Mod diffuse hyokinesis. LA and RA mod dilated. Mod MR and TR. Left pleural eff usion. RVSP 34 mmHg. Card cath of 10/10/19: no significant CAD, LVEDP 9 mmHg, mod global hypokinesis of LV, LVEF 35-40% Intermittently low bp TSH normal on 10/08/19 (0.82) Chronic tobacco use: smokes cigarettes H/O methamphetamine use (test + at time of admission on 10/07/19) Plan: * Complex managment. I again discussed her cath finding with her in detail * Given dilated cm and ac sys CHF, we recommend therapy with carvedilol, JUSTINO- inhib, furosemide, spironolactone * These meds have been started and she is tolerating them well in current dosages * Continue dig for vent rate control * Oral apixaban or stroke and DVT prophylaxis * Advised to quit smoking immediately and completely * I had a very long and detailed discussion with her today. Methamphetamine use likely the cause of or contributory to her current issues of dilated cardiomyopathy and atrial fib. We have advised immediate and complete cessation of methamphetamine, any street drug, alcohol, and tobacco. We have advised close cardiology f/u and compliance with meds. We have advised est ablishment of primary care SAMARA. She understands all of the above and states she will comply RADHA GRAVES MD FACP [facility] CCDS Oct 11, 2019 09:34 POS
--- NOTE | 2019-10-11 09:39 | NUR ---
PROVIDED EDUCATION TO THE PATIENT ABOUT ELIQUIS, FOCUSED ON DOSING, FREQUENCY, SIDE EFFECTS (INCLUDING BRUISING, BLEEDING) AND HOW TO MANAGE (GO TO ER). RECOMMENDED DISCUSSING MEDICATIONS WITH PHARMACIST AT PHARMACY AND TO HAVE NURSE CALL US IF SHE HAS ANY QUESTIONS. Addendum: 10/11/19 at 0941 by MENDEZ RENDON [facility] AN ELIQUIS COUPON WAS PROVIDED BY DR NAVARRO (LEFT IN CHART) AND MENTIONED TO NURSE TO GIVE TO PATIENT AT DISCHARGE
--- NOTE | 2019-10-11 10:50 | NUR ---
CM/SS - Visited with pt based on medication needs at Discharge Plan: Pt to discharge to home DME: No needs at this time Summary: Met with pt to discuss her discharge plan to home. Pt has two family members in the room who are willing to take her home. Pt reports no physician and no medical insurance, and no employment. Pt is open to picking up medications at [facility] with assistance provided for cost. She also verbalizes understanding of making her appointment for follow up with heart doctor, as well as being established with physician at [facility], and is also encouraged to obtain medications through [facility] as well. Pt eager to go home and encouraged to follow up with appt and taking medications as prescribed. Pt verbalizes understanding.
[2019-10-11 11:45] VITALS: BP 102/77
[2019-10-11 12:00] VITALS: BP 102/77
[2019-10-11 14:15] VITALS: BP 102/54
--- NOTE | 2019-10-11 14:15 | NUR ---
PT DISCHARGED HOME. PT AWARE TO SENIOR MARKETING MANAGER MEDICATIONS AT [facility]. ALL INSTRUCTIONS WERE GIVEN TO PATIENT WITH NO QUESTIONS LEFT UNANSWERED. PT AMBULATED PRIOR TO D/C WITH HIGHEST HEART RATE OF 115 NOTED. ALL PERSONAL BELONGINGS TAKEN BY PT DAUGHTER PRIOR TO DISCHARGE. PT TAKEN VIA W/C TO FRONT ENTRANCE OF HOSPITAL WHERE SON WAS WAITING TO TAKE HOME.
== END 2019-10-11 14:15 | disposition home or self-care (01) | DRG 286 ==
LOC: EDUNIT# 10:24 → ER 10:26 → EDBD 12:30 → ICU 12:30
PROVIDERS: ADMIT Internal Medicine; ATTEND Internal Medicine
PROC: 4A023N7 Measurement of Cardiac Sampling and Pressure, Left Heart, Percutaneous Approach (ICD-10-PCS; principal; 2019-10-10)
PROC: B2111ZZ Fluoroscopy of Multiple Coronary Arteries using Low Osmolar Contrast (ICD-10-PCS; 2019-10-10)
PROC: B2151ZZ Fluoroscopy of Left Heart using Low Osmolar Contrast (ICD-10-PCS; 2019-10-10)
PROC: B3101ZZ Fluoroscopy of Thoracic Aorta using Low Osmolar Contrast (ICD-10-PCS; 2019-10-10)
DX: I48.0 Paroxysmal atrial fibrillation (principal); I48.92 Unspecified atrial flutter; I50.23 Acute on chronic systolic (congestive) heart failure; J90 Pleural effusion, not elsewhere classified; I42.0 Dilated cardiomyopathy; R09.02 Hypoxemia; R07.89 Other chest pain; F17.210 Nicotine dependence, cigarettes, uncomplicated; R60.0 Localized edema; J44.9 Chronic obstructive pulmonary disease, unspecified; F15.10 Other stimulant abuse, uncomplicated; I08.1 Rheumatic disorders of both mitral and tricuspid valves
CPT/HCPCS: 36415; 71045; 80048; 80053; 80061; 80162; 80306; 81000; 83735; 83874; 83880; 84100; 84443; 84484; 85025; 85027; 85610; 85730; 87081; 93005; 93306; 93458; 93567; 94640; 96361; 96374; 96375

== ENCOUNTER 2023-10-12 16:35 | Inpatient (IN) | payer MEDICARE ==
[~2023-10-12] VITALS: Ht 165 cm; Wt 72.6 kg
[~2023-10-12 16:35] MED LIST: APIX5TAB PO; CARV6.252 PO; DIGO250T15 PO; DILT-28 PO; FURO20TA4 PO; LISI5TAB20 PO; NAPR220T66 PO; SPIR25TA5 PO
--- OUTSIDE RECORDS SUMMARY | 2023-10-12 16:54 | XMS REPORT ---
Author Author [facility] Address Unknown Phone Unavailable Care Team Providers Care Drug Abuse Counselor Name Role Phone FABIOLA YANEZ Unavailable PROBLEMS Type Condition ICD9-CM Code OZI55-QB Code Onset Dates Condition Status W/U Status Risk SNOMED Code Notes Problem Atrial fibrillation, unspecified type I48.91 confirmed 30320089 Problem Chronic systolic congestive heart failure I50.22 confirmed 110428039 Problem Chronic systolic congestive heart failure I50.22 confirmed 920755249 Problem Right thyroid nodule E04.1 confirmed 343315090 Problem Atrial fibrillation, unspecified type I48.91 confirmed 72833487 Problem Thyroid nodule E04.1 confirmed [id number] Problem Chronic obstructive pulmonary disease, unspecified COPD type J44.9 confirmed 39886287 Problem 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 [address] [facility] [id number] [place] [address] May, FABIOLA YANEZ Cough R05 ; Acute nonintractable headache, unspecified headache type R51 ; Viral URI J06.9 ; Impacted cerumen of both ears H61.23 and Atrial fibrillation, unspecified type I48.91 IMMUNIZATIONS Vaccine Route Administration Date Status 317 FLUZONE QUAD 0.5ML 6MO AND UP 2018 Unknown De c 2018 Refused SOCIAL HISTORY Sex Assigned At : Social History Observation Description Sex Assigned At Unknown Alcohol Screen (Audit-C) Question Answer Notes Did you have a drink contain ing alcohol in the past year? Yes Points 1 Interpretation Negative How often did you have 6 or more drinks on one occasion in the past year? Never (0 points) How many drinks did you have on a typical day when you were drinking in the past year? 1 or 2 (0 points) How often did you have a dri nk containing alcohol in the past year? Monthly or less (1 point) Cessation Question Answer Notes Date Tobacco Cessation Provided: 04/06/2020 PHQ2 Question Answer Notes In the last 2 weeks, how oft en have you had little interest or pleasure in doing things? Not at all In the last 2 weeks, how oft en have you been feeling down, depressed, or hopeless? Not at all Total PHQ2 Score 0 Tobacco use other than smoking: Question Answer Notes Are you an other tobacco user? Yes REASON FOR REFERRAL No Information VITAL SIGNS Height 65 in May, Weight 162 lbs May, Weight-kg 73.48 kg May, Temperature 98.8 degrees Fahrenheit May, Heart Rate 70 bpm May, Respiratory Rate 18 bpm May, BMI 26.96 kg/m2 May, Blood pressure systolic 122 mmHg May, Blood pressure diastolic 74 mmHg May, MEDICATIONS Medication SIG (Take, Route, Frequency, Duration) Notes Start Date End Date Status Albuterol Sulfate HFA 108 (90 Base) MCG/ACT 2 puffs as needed Inhalation every 6 hrs Active Tessalon Perles 100 MG 1 capsule as need ed Orally Three times a day for 14 days May, Active PROCEDURES from 1955 to 2023-05-06 Procedure Date Ordered Date Performed Result Body Sit e EAR LAVAGE 2021-05-26 2021-05-28 N/A REASON FOR VISIT ear c/o- right ear pain for 2 weeks, then for last 3 days has had sinus pressure and cough, and headache, no vaccine, no exposure- Teetee Gaona RN MEDICAL (GENERAL) HISTORY Type Description Date Medical History Heart disiease Medical History Blood thinner Medical History A-FIB Surgical History Heart cath 2019-10 Hospitalization History A Fib 06/2015 Hospitalization History A fib 10/26 MENTAL STATUS No Information ASSESSMENTS Encounter Date Diagnosis Assessment Notes Treatment Notes Treatment Clinical Notes May, Cough (ICD-10 - R05) Cough: Care Instructions material was published May, Acute nonintractable headache, unspecified headache type (ICD-10 - R51) May, Viral URI (ICD-10 - J06.9) May, Impacted cerumen of both ears (ICD-10 - H61.23) May, Atrial fibrillation, unspecified type (ICD-10 - I48.91) May, Other Patient was instructed to self-isolate at home until further instruction from clinic staff PLAN OF TREATMENT Medication Medication Name Sig Start Date Stop Date Tessalon Perles 100 MG 1 capsule as need ed Orally Three times a day for 14 days May, Treatment Notes Assessment Notes Clinical Notes Cough Cough: Care Instruct ions material was published Next Appt Details prn Reason: MEDICATIONS ADMINISTERED Medication Instructions Date of Administration Dosag e DEXAMETHASONE 4MG/ML (PER 1 ML) Jan, 017 4 mg DEPO MEDROL 40 MG/ML Jan, 40 mg
[2023-10-12] MEDS ORDERED: LORazepam 0.5 MG TABLET PO PRN (17:00)
[2023-10-12] MEDS ORDERED: ANTACID SUSPENSION 30 ML UDC PO PRN (17:00)
[2023-10-12] MEDS ORDERED: ONDANSETRON 4 MG ORAL DISSOLVE TABLET PO PRN (17:00)
[2023-10-12] MEDS ORDERED: LACTULOSE SYRUP 10GM/15ML 30ML UDC PO PRN (17:00)
[2023-10-12] MEDS ORDERED: BISACODYL 10 MG SUPPOSITORY PR PRN (17:00)
[2023-10-12] MEDS ORDERED: oxyCODONE IMMEDIATE RELEASE 5 MG TABLET PO PRN (17:00)
[2023-10-12] MEDS ORDERED: RIVAROXABAN 20 MG TABLET PO SCH (17:00)
[2023-10-12] MEDS ORDERED: dilTIAZem DRIP PRE-MIX 125 ML IV SCH (17:00)
[2023-10-12] MEDS ORDERED: NS IV 500 ML 500 ML IV PRN (17:00)
[2023-10-12] MEDS ORDERED: diphenhydrAMINE INJ 50 MG/ML VIAL IVP PRN (17:00)
[2023-10-12] MEDS ORDERED: ACETAMINOPHEN 325 MG TABLET PO PRN (17:00)
[2023-10-12] MEDS ORDERED: ONDANSETRON INJECTION 4 MG/2 ML (SDV) IV PRN (17:00)
[2023-10-12] MEDS ORDERED: HYDROmorphone INJECTION 2 MG/ML VIAL IV PRN (17:00)
[2023-10-12] MEDS ORDERED: MILK OF MAGNESIA 400 MG/5 ML 30 ML UDC PO PRN (17:00)
[2023-10-12] MEDS ORDERED: diphenhydrAMINE 25 MG TABLET PO PRN (17:00)
[2023-10-12] MEDS ORDERED: MELATONIN 3 MG TABLET PO PRN (17:00)
[2023-10-12] MEDS ORDERED: CALCIUM CARBONATE 500 MG CHEW TABLET PO PRN (17:00)
[2023-10-12 17:38] VITALS: BP 110/93
[2023-10-12] MEDS ORDERED: RT-ALBUTEROL SULF 2.5 MG/3 ML PRE-MIX VIAL INH PRN (20:00)
[2023-10-12] MEDS: DOCUSATE SODIUM 100 MG CAPSULE PO SCH (21:00)
[2023-10-12] MEDS: SENNOSIDES 8.6 MG TABLET PO SCH (21:00)
[2023-10-13 05:14] LABS: HEMOGLOBIN 13.8 g/dL (11.5-16.0); WHITE BLOOD COUNT 7.4 10^3/uL (4.3-11.0)
[2023-10-13 05:15] LABS: BASOPHILS # (AUTO) 0.1 10^3/uL (0.0-0.1); BASOPHILS % (AUTO) 1 % (0-10); EOSINOPHILS # (AUTO) 0.1 10^3/uL (0.0-0.3); EOSINOPHILS % (AUTO) 1 % (0-10); HEMATOCRIT 43 % (35-52); LYMPHOCYTES # (AUTO) 1.1 10^3/uL (1.0-4.0); LYMPHOCYTES % (AUTO) 15 % (12-44); MEAN CORPUSCULAR HEMOGLOBIN 28 pg (25-34); MEAN CORPUSCULAR HGB CONC 32 g/dL (32-36); MEAN CORPUSCULAR VOLUME 88 fL (80-99); MEAN PLATELET VOLUME 9.9 fL (9.0-12.2); MONOCYTES # (AUTO) 0.8 10^3/uL (0.0-1.0); MONOCYTES % (AUTO) 11 % (0-12); NEUTROPHILS # (AUTO) 5.3 10^3/uL (1.8-7.8); NEUTROPHILS % (AUTO) 71 % (42-75); PLATELET COUNT 273 10^3/uL (130-400)
[2023-10-13 05:24] LABS: ALBUMIN 3.3 GM/DL (3.2-4.5); POTASSIUM 3.7 MMOL/L (3.6-5.0)
[2023-10-13 05:27] LABS: TOTAL PROTEIN 6.2 GM/DL (6.4-8.2)
[2023-10-13 05:28] LABS: BILIRUBIN,TOTAL 0.6 MG/DL (0.1-1.0)
[2023-10-13 05:30] LABS: CREATININE SERUM 0.76 MG/DL (0.60-1.30); PHOSPHORUS 3.9 MG/DL (2.3-4.7)
[2023-10-13 05:33] LABS: MAGNESIUM 1.8 MG/DL (1.6-2.4)
[2023-10-13] MEDS ORDERED: POTASSIUM CL 10MEQ/50ML IVPB 50 ML IV SCH (06:00)
[2023-10-13] MEDS ORDERED: POTASSIUM CHLORIDE 20 MEQ TABLET PO SCH (06:00)
[2023-10-13] MEDS ORDERED: MAGNESIUM 1 GM/100 ML IVPB 100 ML IV SCH (06:00)
[2023-10-13] MEDS: MAGNESIUM 1 GM/100 ML IVPB 100 ML IV SCH (07:35)
[2023-10-13] MEDS ORDERED: POTASSIUM CHLORIDE 20 MEQ TABLET PO ONE (08:00)
--- NOTE | 2023-10-13 08:45 | Diagnostic Imaging Report ---
EXAMINATION: Chest 1 view HISTORY: Heart failure. Shortness of breath. COMPARISON: 10/11/2019. FINDINGS: There is cardiomegaly and congestion, similar to the prior exam. Improved aeration is seen in the left lung base with possibly decreasing left-sided pleural effusion. Small bilateral pleural effusions remain. No pneumothorax. IMPRESSION: 1. Findings suggestive of improving congestion and edema. Dictated by: Dictated on workstation # [id number]
--- NOTE | 2023-10-13 09:14 | Consultation-Cardiology ---
HPI-Cardiology Cardiology Consultation: Date of Consultation 10/13/23 Time Seen by a Provider: 08:50 Date of Admission 10-12-23 Attending Physician Amanda,Local Physician Admitting Physician Admitting Physician: Bety Bragg DO Attending Physician: Bety Bragg DO Consulting Physician Saumya Owens MD HPI: Chief Complaint: A-fib/flutter with RVR Ms. Melgar is a 67 yr old female transferred to ICU 2 from [facility] by Dr. Bragg. She reports increasing SOB since which has progressively gotten worse. She states she had a "GI bug" over with n/v/d. This has resolved. She reports freq cough which is occ productive. No c/o CP or palpitations. She reports increasing bilat LE swelling over the last several weeks. She reports she takes no medications at home. She reports her daughter about 3 months ago. She states she does smoke methamphetamines occ with her last usage being over a week ago. She reports her SOB is better this morning. Review of Systems-Cardiology Review of Systems Constitutional: No chills, No fever; malaise Eyes: No vision change Ears/Nose/Throat: No epistaxis Respiratory: As described under HPI Cardiovascular: As described under HPI Gastrointestinal: No constipation, No diarrhea; nausea, vomiting Genitourinary: No dysuria, No hematuria Musculoskeletal: no symptoms reported Skin: No rash on exposed areas, No ulcerations on exposed areas Psychiatric/Neurological: depression; No seizure, No focal weakness, No syncope Hematologic: No bleeding abnormalities TBR-[id number]-Eqhfxa Hx Patient Social History Smoking Status: Former Smoker 2nd Hand Smoke Exposure: Yes Alcohol Use?: Yes Pt feels they are or have been: No Past Medical History PMH As described under Assessment. Family Medical History Family Medical History: She does not report fam h/o early CAD or SCD Allergies and Home Medications Allergies Coded Allergies: No Known Drug Allergies (Unverified , 10/07/19) Patient Home Medication List Apixaban (Eliquis) 5 Mg Tablet, 5 MG PO BID Prescribed by: AMISHA NAVARRO on 10/11/19 1004 Carvedilol (Carvedilol) 6.25 Mg Tablet, 6.25 MG PO BID Prescribed by: AMISHA NAVARRO on 10/11/19 1004 Digoxin (Digox) 250 Mcg Tablet, 0.25 MG PO DAILY Prescribed by: AMISHA NAVARRO on 10/11/19 100 Furosemide (Furosemide) 20 Mg Tablet, 20 MG PO DAILY Prescribed by: AMISHA NAVARRO on 10/11/19 100 Lisinopril (Lisinopril) 5 Mg Tablet, 2.5 MG PO DAILY Prescribed by: AMISHA NAVARRO on 10/11/19 100 Spironolactone (Spironolactone) 25 Mg Tablet, 25 MG PO DAILY Prescribed by: AMISHA NAVARRO on 10/11/19 100 Physical Exam-Cardiology Physical Exam Vital Signs/I&O 10/12/23 10/13/23 10/13/23 10/13/23 22:00 00:00 00:00 00:05 Pulse 89 90 92 Resp 16 19 B/P (MAP) 109/80 (90) 105/77 (86) Pulse Ox 95 94 94 O2 Delivery Room Air Room Air Room Air 10/13/23 10/13/23 10/13/23 10/13/23 00:24 01:00 02:00 03:00 Temp 36.2 Pulse 80 100 95 Resp 17 19 19 B/P (MAP) 101/75 (84) 121/82 (95) 123/73 (90) Pulse Ox 94 91 90 O2 Delivery Room Air Room Air Room Air 10/13/23 10/13/23 10/13/23 10/13/23 04:00 04:18 05:25 06:17 Temp 36.5 Pulse 101 Resp 19 B/P (MAP) 122/78 (93) Pulse Ox 96 90 90 O2 Delivery Room Air Room Air Room Air 10/13/23 10/13/23 10/13/23 07:00 07:00 08:00 Pulse 106 112 94 Resp 18 18 B/P (MAP) 122/80 (94) 113/84 (94) Pulse Ox 92 O2 Delivery Room Air Room Air 10/13/23 00:00 Intake Total 400 ml Output Total 0 ml Balance 400 ml Capillary Refill : Constitutional: AAO x 3, well-developed, well-nourished HEENT: PERRL, hearing is well preserved, oral hygience is good Neck: No carotid bruit; carotid pulses are 2 + bilaterally Respiratory: No accessory muscle use, No respiratory distress; chest expansion is symmetric, chest is bilaterally symmetric, other (diminished lower lobes) Cardiovascular: irregularly irregular; No JVD; S1 and S2 Gastrointestinal: No tender; soft, round, audible bowel sounds Extremities: no lower extremity edema bilateral Neurologic/Psychiatric: other (moves all extremities; flat affect) Skin: No rash on exposed areas, No ulcerations on exposed areas Data Review Labs Laboratory Tests 10/13/23 04:28: White Blood Count 7.4, Red Blood Count 4.88, Hemoglobin 13.8, Hematocrit 43, Mean Corpuscular Volume 88, Mean Corpuscular Hemoglobin 28, Mean Corpuscular Hemoglobin Concent 32, Red Cell Distribution Width 13.4, Platelet Count 273, Mean Platelet Volume 9.9, Immature Granulocyte % (Auto) 0, Neutrophils (%) (Auto) 71, Lymphocytes (%) (Auto) 15, Monocytes (%) (Auto) 11, Eosinophils (%) (Auto) 1, Basophils (%) (Auto) 1, Neutrophils # (Auto) 5.3, Lymphocytes # (Auto) 1.1, Monocytes # (Auto) 0.8, Eosinophils # (Auto) 0.1, Basophils # (Auto) 0.1, Immature Granulocyte # (Auto) 0.0, Sodium Level 138, Potassium Level 3.7, Chloride Level 101, Carbon Dioxide Level 26, Anion Gap 11, Blood Urea Nitrogen 17, Creatinine 0.76, Estimat Glomerular Filtration Rate 87, BUN/Creatinine Ratio 22, Glucose Level 107H, Calcium Level 9.0, Corrected Calcium 9.6, Phosphorus Level 3.9, Magnesium Level 1.8, Total Bilirubin 0.6, Aspartate Amino Transf (AST/SGOT) 21, Alanine Aminotransferase (ALT/SGPT) 24, Alkaline Phosphatase 80, Total Protein 6.2L, Albumin 3.3 Laboratory Tests 10/13/23 04:28 Radiology NAME: JAMIE MELGAR [facility] REC#: [id number] PT STATUS: ADM IN : 1955 PHYSICIAN: BETY BRAGG DO ADMIT DATE: 10/12/23/ICU Draft Date of Exam:10/13/23 CHEST 1 VIEW, AP/PA ONLY EXAMINATION: Chest 1 view HISTORY: Heart failure. Shortness of breath. COMPARISON: 10/11/2019. FINDINGS: There is cardiomegaly and congestion, similar to the prior exam. Improved aeration is seen in the left lung base with possibly decreasing left-sided pleural effusion. Small bilateral pleural effusions remain. No pneumothorax. IMPRESSION: 1. Findings suggestive of improving congestion and edema. Dictated on workstation # [id number] Dict: 10/13/2335 Trans: 10/13/2344 CVB [id number] Interpreted by: CZEAR ROCK DO Electronically signed by: A/P-Cardiology Assessment/Admission Diagnosis A Fib/flutter with RVR - first diagnosed on 10/07/19 - Currently on Cardizem gtt - change to oral - Continue OAC with Xarelto Non-compliance with medications/follow up - has not been taking any medications at home Dilated cardiomyopathy - Echocardiogram of 10-08-19 showed LVEF 40-45%. Mod diffuse hyokinesis. LA and RA mod dilated. Mod MR and TR. Left pleural effusion. RVSP 34 mmHg. - Card cath of 10/10/19: no significant CAD, LVEDP 9 mmHg, mod global hypokinesis of LV, LVEF 35-40% H/O tobacco use - quit approx 5 yrs ago Probable COPD H/O methamphetamine use - reports last usage over a week ago Discussion and Recomendations A-fib/flutter with RVR - rate controlled on Cardizem gtt - change to oral - continue OAC for stroke prophylaxis Acute on chronic systolic CHF - treat with diuretics - Echocardiogram today Advise compliance with medications Advise cessation of methamphetamines Monitor lab Replace electrolytes as indicated Further recs will be based on her hospital course We would like to thank Dr. Bragg for this consult RITA SNOW Oct 13, 2023 09:13
[2023-10-13] MEDS ORDERED: dilTIAZem ER 240 MG CAPSULE PO NR (09:30)
--- NOTE | 2023-10-13 09:42 | Tele-ICU Progress Note ---
Subjective Date Seen by a Provider: Oct 13, 2023 Time Seen by a Provider: 09:42 Subjective/Events-last exam Tele-ICU Physician , Progress Note ) Service provided via interactive audio and video telecommunications [facility]ARE sy stem to a patient admitted to ICU bed in [facility]. Patient is seen today due to persistent need of ICU care Available chart/ vitals / labs / Images reviewed Video assessment done using teleICU camera, rest of exam as per RN She is a 67 yr old female with pm hx og afib for which she is recently admitted and discharged now she was transfered from [facility] for c/o increasing Shortness of breath and jasmine. leg swelling. she is found to have A.flutter with rvr. Admitted to icu and started on iv cardiazem drip. also given lasix for chf. This am she is feeling better. Impression. 1.A. Flutter with rapid ventricular rate. 2. acute and chr. systolic CHF 3. Methamputamine abuse. 4. Tobacco abuse disorder. Recommendations. 1. management of A.flutter and chf per cardiology. 2. anticoagulation for stroke prophylaxis and dvt prophylaxis. 3. IV lasix as needed. 4. monitor electrolytes and supplement as required Further treatment depends upon his hospital progress and any new developments and laboratory data. I have reviewed the case with DISTRICT COURT ADMINISTRATOR today. I am remotely monitoring this patient from Tele icu station in [place]. I am unable to do the bedside exam, and history/physical and pertinent information is taken from other notes in the computer and bedside staff. Certain portions of this document may have been dictated utilizing voice recognition technology such as [employer]. Inherent to this technology, typographical and grammatical errors may exist. As much as I am diligent to identify and correct to these mistakes, some errors may remain in the document. Critical care time devoted to this patient today is approximately is-20 minutes.- Sepsis Event Evaluation Height, Weight, BMI Height: '" Weight: lbs. oz. kg; 26.66 BMI Method: Exam Exam Patient acknowledged, consented, and participated in this virtual visit which was conducted using real time audio/video Vital Signs Date Time Temp Pulse Resp B/P (MAP) Pulse Ox O2 Delivery O2 Flow Rate FiO2 10/13/23 09:00 104 21 113/89 (97) Room Air 10/13/23 08:00 94 18 113/84 (94) Room Air 10/13/23 07:00 112 10/13/23 07:00 106 18 122/80 (94) 92 Room Air 10/13/23 06:17 90 Room Air 10/13/23 05:25 101 19 122/78 (93) 90 Room Air 10/13/23 04:18 36.5 10/13/23 04:00 96 Room Air 10/13/23 03:00 95 19 123/73 (90) 90 Room Air 10/13/23 02:00 100 19 121/82 (95) 91 Room Air 10/13/23 01:00 80 17 101/75 (84) 94 Room Air 10/13/23 00:24 36.2 10/13/23 00:05 92 10/13/23 00:00 94 Room Air 10/13/23 00:00 90 19 105/77 (86) 94 Room Air 10/12/23 22:00 89 16 109/80 (90) 95 Room Air 10/12/23 21:00 89 19 109/80 (90) 93 Room Air 10/12/23 20:00 84 14 152/73 (99) 95 Room Air 10/12/23 20:00 95 Room Air 10/12/23 20:00 36.8 Room Air 10/12/23 19:55 95 Room Air 10/12/23 19:55 92 95 21 10/12/23 19:02 110 10/12/23 19:00 112 14 97/86 (90) 95 Room Air 10/12/23 18:00 112 18 97/86 (90) 95 Room Air 10/12/23 17:38 102 110/93 10/12/23 17:00 114 22 128/93 (105) 95 Room Air 10/12/23 16:45 107 22 123/95 (104) 93 Room Air I & O 10/13/23 06:59 Intake Total 640 ml Output Total 0 ml Balance 640 ml Height & Weight Height: '" Weight: lbs. oz. kg; 26.66 BMI Method: General Appearance: Chronically ill Results Lab Laboratory Tests 10/13/23 04:28 Assessment/Plan Assessment/Plan as above Critical Care: Critically Ill Patient Time spent with patient (mins): 20 LUIS MIGUEL SPANN MD Oct 13, 2023 09:42
[2023-10-13] MEDS ORDERED: DIGOXIN INJECTION 0.25 MG/ML 2 ML AMPULE IV NR (10:00)
[2023-10-13] MEDS ORDERED: FUROSEMIDE INJECTION 40 MG/4 ML VIAL IVP SCH (10:00)
--- NOTE | 2023-10-13 10:29 | History & Physical ---
JAZZYGALLOANGELIQUE 10/13/23 1029: History of Present Illness History of Present Illness Reason for visit/HPI Angela is a 67 yo F with a PMH of Afib first diagnosed on 10/07/2023, systolic CHF, methamphetamine use and former tobacco use who was transferred from [facility] yesterday for continued management of Afib with RVR and acute on chronic systolic CHF. This morning, the is stable on room air. She denies shortness of breath, chest pain or palpitations. She believes her leg swelling has improved since she was admitted to [place]. Date of Admission Oct 12, 2023 at 16:37 Date Seen by a Provider: Oct 13, 2023 I consulted on this patient on 10/13/23 10:24 Attending Physician No,Local Physician Admitting Physician Admitting Physician: Jessica Bragg DO Attending Physician: Jessica Bragg DO Consult Allergies and Home Medications Allergies Coded Allergies: No Known Drug Allergies (Unverified , 10/07/19) Patient Home Medication List Apixaban (Eliquis) 5 Mg Tablet, 5 MG PO BID Prescribed by: MENDEZ RENDON on 10/13/23 1515 Carvedilol (Carvedilol) 6.25 Mg Tablet, 6.25 MG PO BID Prescribed by: RITA SNOW on 10/13/23 1333 Diltiazem HCl (Diltiazem 24Hr ER) 240 Mg Cap.er.24h, 240 MG PO DAILY Prescribed by: RITA SNOW on 10/13/23 1331 Furosemide (Lasix) 40 Mg Tablet, 40 MG PO DAILY Prescribed by: RITA SNOW on 10/13/23 1331 Ibuprofen (Ibuprofen) 200 Mg Tablet, 400 MG PO Q6H PRN for PAIN-MILD (1-4), (Reported) Entered as Reported by: BENTLEY ROBLERO on 10/13/23 1509 Last Action: Reviewed Lisinopril (Lisinopril) 5 Mg Tablet, 2.5 MG PO DAILY Prescribed by: RITA SNOW on 10/13/23 1333 Spironolactone (Spironolactone) 25 Mg Tablet, 25 MG PO DAILY Prescribed by: RADHA GRAVES on 10/13/23 1447 Discontinued Medications Digoxin (Digox) 250 Mcg Tablet, 0.25 MG PO DAILY Discontinued Reason: No Longer Taking Prescribed by: AMISHA NAVARRO on 10/11/19 1004 Last Action: Discontinued Furosemide (Furosemide) 20 Mg Tablet, 20 MG PO DAILY Prescribed by: AMISHA NAVARRO on 10/11/19 1004 Spironolactone (Spironolactone) 25 Mg Tablet, 25 MG PO DAILY Prescribed by: RITA SNOW on 10/13/23 1333 Past Wfkqqeu-Jsenqx-Hvwypn Hx Patient Social History Tobacco Use?: No Smoking Status: Former Smoker Use of E-Cig and/or Vaping dev: Yes E-Cig or Vaping type used: Nicotine Substance use?: No Alcohol Use?: Yes Alcohol type: Hard Liquor, Wine Alcohol Frequency: Several times a month Pt feels they are or have been: No Immunizations Up To Date Tetanus Booster (TDap): Unknown Hepatitis A: No Hepatitis B: No Seasonal Allergies Seasonal Allergies: No Current Status status: No status: No Advance Directives: No Advance Directive Location: Home Communicates: Verbally Primary Language: Bhutanese Preferred Spoken Language: Bhutanese Is interpretation needed?: No Sensory deficits: Vision impairment Implanted or Applied Medical D: None Past Medical History Surgeries: Section, Tubal Ligation Atrial Fibrillation Blood Disorders: No Review of Systems Psychiatric/Neurological: Anxiety Physical Exam Vital Signs Vital Signs - First Documented 10/12/23 16:45 Pulse 107 Resp 22 B/P (MAP) 123/95 (104) Pulse Ox 93 O2 Delivery Room Air Capillary Refill : Height, Weight, BMI Height: '" Weight: lbs. oz. kg; 26.66 BMI Method: General Appearance: No Apparent Distress Respiratory: Crackles (faint in base ) Cardiovascular: Irregularly Irregular Gastrointestinal: Normal Bowel Sounds Neurologic/Psychiatric: Alert, Oriented x3 Assessment/Plan Admission Diagnosis AFib with RVR - RVR first diagnosed on 10/07/2023 - Cardiology planning to convert to oral rate control tomorrow - Continue diltiazem IV - Staring enoxaparin Acute on chronic systolic CHF - improving. - Dilated cardiomyopathy likely 2/2 to methampetamine use - EF of 40-45% with mild hypokinesis per 10/12 Echo - Today's CXR with "improved congestion and edema" - Methamphetamine cessation encouraged - Starting digoxin per cardiology - Continue Lasix 40 mg - GDMT at discharge JESSICA BRAGG DO 10/14/23 0510: History of Present Illness History of Present Illness Reason for visit/HPI Chief complaint: Recurrent A-fib with RVR with congestive heart failure HPI: This is a 67-year-old female who I transferred from [facility] due to refractory A-fib with RVR with mild hypotension. Cardiology consulted. Upon further interview it appears that she has a longstanding user of methamphetamines. She was given medication and transition off Cardizem drip and she will go home today Time Seen by a Provider: 11:00 Allergies and Home Medications Allergies Coded Allergies: No Known Drug Allergies (Unverified , 10/07/19) Patient Home Medication List Home Medication List Reviewed: Yes Apixaban (Eliquis) 5 Mg Tablet, 5 MG PO BID Prescribed by: MENDEZ RENDON on 10/13/23 1515 Carvedilol (Carvedilol) 6.25 Mg Tablet, 6.25 MG PO BID Prescribed by: RITA SNOW on 10/13/23 1333 Diltiazem HCl (Diltiazem 24Hr ER) 240 Mg Cap.er.24h, 240 MG PO DAILY Prescribed by: RITA SNOW on 10/13/23 1331 Furosemide (Lasix) 40 Mg Tablet, 40 MG PO DAILY Prescribed by: RITA SNOW on 10/13/23 1331 Ibuprofen (Ibuprofen) 200 Mg Tablet, 400 MG PO Q6H PRN for PAIN-MILD (1-4), (Reported) Entered as Reported by: BENTLEY ROBLERO on 10/13/23 1509 Last Action: Reviewed Lisinopril (Lisinopril) 5 Mg Tablet, 2.5 MG PO DAILY Prescribed by: RITA SNOW on 10/13/23 1333 Spironolactone (Spironolactone) 25 Mg Tablet, 25 MG PO DAILY Prescribed by: RADHA GRAVES on 10/13/23 1447 Discontinued Medications Digoxin (Digox) 250 Mcg Tablet, 0.25 MG PO DAILY Discontinued Reason: No Longer Taking Prescribed by: AMISHA NAVARRO on 10/11/19 1004 Last Action: Discontinued Furosemide (Furosemide) 20 Mg Tablet, 20 MG PO DAILY Prescribed by: AMISHA NAVARRO on 10/11/19 1004 Spironolactone (Spironolactone) 25 Mg Tablet, 25 MG PO DAILY Prescribed by: RITA SNOW on 10/13/23 1333 Past Sqouqdi-Suecgo-Mllxwf Hx Patient Social History Marrital Status: single Employed/Student: unemployed Smoking Status: Former Smoker Substance use?: Yes Substance type: Amphetamines Past Medical History Atrial Fibrillation Review of Systems Constitutional: see HPI Physical Exam General Appearance: No Apparent Distress, WD/WN, Chronically ill, Thin Eyes: Bilateral Eye Normal Inspection, Bilateral Eye PERRL, Bilateral Eye EOMI HEENT: PERRL/EOMI, Normal ENT Inspection, Pharynx Normal Neck: Full Range of Motion, Normal Inspection, Non Tender, Supple, Carotid Bruit Respiratory: Chest Non Tender, Lungs Clear, Normal Breath Sounds, No Accessory Muscle Use, No Respiratory Distress Cardiovascular: No Edema, No Gallop, No JVD, No Murmur, Normal Peripheral Pulses, Irregularly Irregular Gastrointestinal: Normal Bowel Sounds, No Organomegaly, No Pulsatile Mass, Non Tender, Soft Back: Normal Inspection, No CVA Tenderness, No Vertebral Tenderness Extremity: Normal Capillary Refill, Normal Inspection, Normal Range of Motion, Non Tender, No Calf Tenderness, No Pedal Edema Neurologic/Psychiatric: Alert, Oriented x3, No Motor/Sensory Deficits, Normal Mood/Affect Skin: Normal Color, Warm/Dry Lymphatic: No Adenopathy Assessment/Plan Assessment and Plan Assessment: A-fib with RVR Congestive heart failure Methamphetamine use Former smoker Plan: Supportive care Cardiology appreciated Discharge home Admission Diagnosis Admission Status: Inpatient Order (span 2 midnights) Reason for Inpatient Admission: A-fib with RVR and CHF Supervisory-Addendum Brief Verification & Attestation Participated in pt care: history, MDM, physical Personally performed: exam, history, MDM, supervision of care Care discussed with: Medical Student Procedures: n/a Results interpretation: Verified all documentation Verification and Attestation of Medical Student E/M Service A medical student performed and documented this service in my presence. I reviewed and verified all information documented by the medical student and made modifications to such information, when appropriate. I personally performed the physical exam and medical decision making. Jessica Bragg, Oct 14, 2023,05:10 ANGELIQUE MARK Oct 13, 2023 10:29 JESSICA BRAGG DO Oct 14, 2023 05:10
[2023-10-13] MEDS: DOCUSATE SODIUM 100 MG CAPSULE PO SCH (10:38)
[2023-10-13] MEDS: SENNOSIDES 8.6 MG TABLET PO SCH (10:38)
[2023-10-13] MEDS ORDERED: DILT240C91 PO (13:31)
[2023-10-13] MEDS ORDERED: FURO-124 PO (13:31)
[2023-10-13] MEDS ORDERED: CARV6.252 PO (13:33)
[2023-10-13] MEDS ORDERED: LISI5TAB20 PO (13:33)
[2023-10-13] MEDS ORDERED: SPIR25TA5 PO ×2 (13:33→14:47)
--- NOTE | 2023-10-13 14:45 | Consultation-Cardiology ---
HPI-Cardiology Cardiology Consultation: Date of Consultation 10/13/23 Time Seen by a Provider: 13:00 Date of Admission Attending Physician Amanda,Local Physician Admitting Physician Admitting Physician: Jessica Pride DO Attending Physician: Jessica Pride DO Consulting Physician RADHA GRAVES MD, MA, FACP, FACC, [facility] [place], CCDS Physician requesting consult: Dr Pride HPI: Chief Complaint: Reason for Card consult: A-fib/flutter with RVR Ms. Melgar is a 67 yr old female transferred to ICU 2 from [facility] by Dr. Pride. She reports increasing SOB since which has progressively gotten worse. She states she had a "GI bug" over with n/v/d. This has resolved. She reports freq cough which is occ productive. No c/o CP or palpitations. She reports increasing bilat LE swelling over the last several weeks. She reports she takes no medications at home. She reports her daughter about 3 months ago. She states she does smoke methamphetamines occ with her last usage being over a week ago. She reports her SOB is better this morning. Review of Systems-Cardiology Review of Systems Constitutional: No chills, No fever; malaise Eyes: No vision change Ears/Nose/Throat: No epistaxis Respiratory: As described under HPI Cardiovascular: As described under HPI Gastrointestinal: No constipation, No diarrhea; nausea, vomiting Genitourinary: No dysuria, No hematuria Musculoskeletal: no symptoms reported Skin: No rash on exposed areas, No ulcerations on exposed areas Psychiatric/Neurological: depression; No seizure, No focal weakness, No syncope Hematologic: No bleeding abnormalities VVU-Sgijkl-Fhozpg Hx Patient Social History Smoking Status: Former Smoker 2nd Hand Smoke Exposure: Yes Alcohol Use?: Yes Pt feels they are or have been: No Past Medical History PMH As described under Assessment. Family Medical History Family Medical History: She does not report fam h/o early CAD or SCD Allergies and Home Medications Allergies Coded Allergies: No Known Drug Allergies (Unverified , 10/07/19) Patient Home Medication List Home Medication List Reviewed: Yes Apixaban (Eliquis) 5 Mg Tablet, 5 MG PO BID Prescribed by: AMISHA NAVARRO on 10/11/19 1004 Carvedilol (Carvedilol) 6.25 Mg Tablet, 6.25 MG PO BID Prescribed by: RITA SNOW on 10/13/23 1333 Digoxin (Digox) 250 Mcg Tablet, 0.25 MG PO DAILY Prescribed by: AMISHA NAVARRO on 10/11/19 1004 Diltiazem HCl (Diltiazem 24Hr ER) 240 Mg Cap.er.24h, 240 MG PO DAILY Prescribed by: RITA SNOW on 10/13/23 1331 Furosemide (Furosemide) 20 Mg Tablet, 20 MG PO DAILY Prescribed by: AMISHA NAVARRO on 10/11/19 1004 Furosemide (Lasix) 40 Mg Tablet, 40 MG PO DAILY Prescribed by: RITA SNOW on 10/13/23 1331 Lisinopril (Lisinopril) 5 Mg Tablet, 2.5 MG PO DAILY Prescribed by: RITA SNOW on 10/13/23 1333 Spironolactone (Spironolactone) 25 Mg Tablet, 25 MG PO DAILY Prescribed by: RITA SNOW on 10/13/23 1333 Physical Exam-Cardiology Physical Exam Vital Signs/I&O 10/13/23 10/13/23 10/13/23 10/13/23 03:00 04:00 04:18 05:25 Temp 36.5 Pulse 95 101 Resp 19 19 B/P (MAP) 123/73 (90) 122/78 (93) Pulse Ox 90 96 90 O2 Delivery Room Air Room Air Room Air 10/13/23 10/13/23 10/13/23 10/13/23 06:17 07:00 07:00 08:00 Pulse 106 112 94 Resp 18 18 B/P (MAP) 122/80 (94) 113/84 (94) Pulse Ox 90 92 O2 Delivery Room Air Room Air Room Air 10/13/23 10/13/23 10/13/23 10/13/23 08:00 09:00 10:00 11:00 Pulse 104 96 101 Resp 21 21 20 B/P (MAP) 113/89 (97) 96/86 (89) 110/86 (94) Pulse Ox 94 O2 Delivery Room Air Room Air Room Air Room Air 10/13/23 10/13/23 12:00 12:00 Pulse 120 Resp 20 B/P (MAP) Pulse Ox 95 96 O2 Delivery Room Air Room Air 10/12/23 23:59 Intake Total 400 ml Output Total 0 ml Balance 400 ml Capillary Refill : Constitutional: AAO x 3, well-developed, well-nourished HEENT: PERRL, hearing is well preserved, oral hygience is good Neck: No carotid bruit; carotid pulses are 2 + bilaterally Respiratory: No accessory muscle use, No respiratory distress; chest expansion is symmetric, chest is bilaterally symmetric, other (diminished lower lobes) Cardiovascular: irregularly irregular; No JVD; S1 and S2 Gastrointestinal: No tender; soft, round, audible bowel sounds Extremities: no lower extremity edema bilateral Neurologic/Psychiatric: other (moves all extremities) Skin: No rash on exposed areas, No ulcerations on exposed areas Data Review Labs Laboratory Tests 10/13/23 04:28: White Blood Count 7.4, Red Blood Count 4.88, Hemoglobin 13.8, Hematocrit 43, Mean Corpuscular Volume 88, Mean Corpuscular Hemoglobin 28, Mean Corpuscular Hemoglobin Concent 32, Red Cell Distribution Width 13.4, Platelet Count 273, Mean Platelet Volume 9.9, Immature Granulocyte % (Auto) 0, Neutrophils (%) (Auto) 71, Lymphocytes (%) (Auto) 15, Monocytes (%) (Auto) 11, Eosinophils (%) (Auto) 1, Basophils (%) (Auto) 1, Neutrophils # (Auto) 5.3, Lymphocytes # (Auto) 1.1, Monocytes # (Auto) 0.8, Eosinophils # (Auto) 0.1, Basophils # (Auto) 0.1, Immature Granulocyte # (Auto) 0.0, Sodium Level 138, Potassium Level 3.7, Chloride Level 101, Carbon Dioxide Level 26, Anion Gap 11, Blood Urea Nitrogen 17, Creatinine 0.76, Estimat Glomerular Filtration Rate 87, BUN/Creatinine Ratio 22, Glucose Level 107H, Calcium Level 9.0, Corrected Calcium 9.6, Phosphorus Level 3.9, Magnesium Level 1.8, Total Bilirubin 0.6, Aspartate Amino Transf (AST/SGOT) 21, Alanine Aminotransferase (ALT/SGPT) 24, Alkaline Phosphatase 80, Total Protein 6.2L, Albumin 3.3 Microbiology 10/12/23 MRSA Screen - Final, Complete MRSA not isolated A/P-Cardiology Assessment/Admission Diagnosis A Fib/flutter with RVR - first diagnosed on 10/07/19 - Currently on Cardizem gtt - change to oral - Continue OAC with Xarelto Non-compliance with medications/follow up - has not been taking any medications at home Dilated cardiomyopathy - Echocardiogram of 10-08-19 showed LVEF 40-45%. Mod diffuse hyokinesis. LA and RA mod dilated. Mod MR and TR. Left pleural effusion. RVSP 34 mmHg. - Card cath of 10/10/19: no significant CAD, LVEDP 9 mmHg, mod global hypokinesis of LV, LVEF 35-40% - Echo on 10/13/23: LVEF 40-45%, moderate enlargement of both atria, mod MR, PASP 35-40 mmHg H/O tobacco use - quit approx 5 yrs ago Probable COPD H/O methamphetamine use - reports last usage over a week ago Discussion and Recomendations * Treat cardiomyopathy with carvedilol and lisinopril and spironolactone * Furosemide for CHF * Apixaban for stroke prophylaxis * Long-acting dilt for vent rate control * We advised to remain hospitalized for adjustment of meds. She refuses. Insists on going home. Advised close oupt f/u and to return to ER for any recurrence of symptoms or new symptoms * Advised not to use tobacco, alcohol, or street drugs (such as methamphetamine) RADHA GRAVES MD FACP FAC CCDS Oct 13, 2023 14:45
[2023-10-13] MEDS ORDERED: IBUP-2473 PO (15:09)
[2023-10-13] MEDS ORDERED: APIX5TAB PO (15:15)
--- NOTE | 2023-10-13 15:41 | Discharge Summary ---
Diagnosis/Chief Complaint Date of Admission Oct 12, 2023 at 16:37 Date of Discharge Discharge Date: Oct 13, 2023 Discharge Diagnosis A-fib with RVR CHF Meth use Former smoker Discharge Summary Discharge Physical Examination Allergies: Coded Allergies: No Known Drug Allergies (Unverified , 10/07/19) Vitals & I&Os Vital Signs Date Time Temp Pulse Resp B/P (MAP) Pulse Ox O2 Delivery O2 Flow Rate FiO2 10/13/23 16:05 37.3 10/13/23 16:00 95 Room Air 10/13/23 15:00 118 20 10/12/23 19:55 21 Hospital Course Was the Problem List Reviewed?: Yes See H&P Labs (last 24 hrs) Laboratory Tests 10/13/23 04:28: White Blood Count 7.4, Red Blood Count 4.88, Hemoglobin 13.8, Hematocrit 43, Mean Corpuscular Volume 88, Mean Corpuscular Hemoglobin 28, Mean Corpuscular Hemoglobin Concent 32, Red Cell Distribution Width 13.4, Platelet Count 273, Mean Platelet Volume 9.9, Immature Granulocyte % (Auto) 0, Neutrophils (%) (Auto) 71, Lymphocytes (%) (Auto) 15, Monocytes (%) (Auto) 11, Eosinophils (%) (Auto) 1, Basophils (%) (Auto) 1, Neutrophils # (Auto) 5.3, Lymphocytes # (Auto) 1.1, Monocytes # (Auto) 0.8, Eosinophils # (Auto) 0.1, Basophils # (Auto) 0.1, Immature Granulocyte # (Auto) 0.0, Sodium Level 138, Potassium Level 3.7, Chloride Level 101, Carbon Dioxide Level 26, Anion Gap 11, Blood Urea Nitrogen 17, Creatinine 0.76, Estimat Glomerular Filtration Rate 87, BUN/Creatinine Ratio 22, Glucose Level 107H, Calcium Level 9.0, Corrected Calcium 9.6, Phosphorus Level 3.9, Magnesium Level 1.8, Total Bilirubin 0.6, Aspartate Amino Transf (AST/SGOT) 21, Alanine Aminotransferase (ALT/SGPT) 24, Alkaline Phosphatase 80, Total Protein 6.2L, Albumin 3.3 Microbiology 10/12/23 MRSA Screen - Final, Complete MRSA not isolated Pending Labs Microbiology Date/Time Source Procedure Growth Status 10/12/23 17:30 Nasal MRSA Screen - Final MRSA not isolated Complete Laboratory Tests 10/13/23 04:28: White Blood Count 7.4, Red Blood Count 4.88, Hemoglobin 13.8, Hematocrit 43, Mean Corpuscular Volume 88, Mean Corpuscular Hemoglobin 28, Mean Corpuscular Hemoglobin Concent 32, Red Cell Distribution Width 13.4, Platelet Count 273, Mean Platelet Volume 9.9, Immature Granulocyte % (Auto) 0, Neutrophils (%) (Auto) 71, Lymphocytes (%) (Auto) 15, Monocytes (%) (Auto) 11, Eosinophils (%) (Auto) 1, Basophils (%) (Auto) 1, Neutrophils # (Auto) 5.3, Lymphocytes # (Auto) 1.1, Monocytes # (Auto) 0.8, Eosinophils # (Auto) 0.1, Basophils # (Auto) 0.1, Immature Granulocyte # (Auto) 0.0, Sodium Level 138, Potassium Level 3.7, Chloride Level 101, Carbon Dioxide Level 26, Anion Gap 11, Blood Urea Nitrogen 17, Creatinine 0.76, Estimat Glomerular Filtration Rate 87, BUN/Creatinine Ratio 22, Glucose Level 107, Calcium Level 9.0, Corrected Calcium 9.6, Phosphorus Level 3.9, Magnesium Level 1.8, Total Bilirubin 0.6, Aspartate Amino Transf (AST/SGOT) 21, Alanine Aminotransferase (ALT/SGPT) 24, Alkaline Phosphatase 80, Total Protein 6.2, Albumin 3.3 Discharge Home Medications: Active Scripts Active Eliquis (Apixaban) 5 Mg Tablet 5 Mg PO BID Spironolactone 25 Mg Tablet 25 Mg PO DAILY 30 Days Lisinopril 5 Mg Tablet 2.5 Mg PO DAILY Carvedilol 6.25 Mg Tablet 6.25 Mg PO BID Lasix (Furosemide) 40 Mg Tablet 40 Mg PO DAILY Diltiazem 24Hr ER (Diltiazem HCl) 240 Mg Cap.er.24h 240 Mg PO DAILY Reported Ibuprofen 200 Mg Tablet 400 Mg PO Q6H PRN Instructions to patient/family Please see electronic discharge instructions given to patient. BETY BRAGG DO Oct 13, 2023 15:41
[2023-10-14] MEDS ORDERED: dilTIAZem ER 240 MG CAPSULE PO SCH (09:00)
== END 2023-10-13 17:30 | disposition home or self-care (01) | DRG 292 ==
LOC: ICU 16:37
PROVIDERS: ADMIT Internal Medicine; ATTEND Internal Medicine
DX: I50.32 Chronic diastolic (congestive) heart failure (principal); I42.0 Dilated cardiomyopathy; I48.92 Unspecified atrial flutter; I48.91 Unspecified atrial fibrillation; F15.90 Other stimulant use, unspecified, uncomplicated; F41.9 Anxiety disorder, unspecified; Z87.891 Personal history of nicotine dependence; Z91.148 Patient's other noncompliance with medication regimen for other reason; Z79.01 Long term (current) use of anticoagulants; Z79.899 Other long term (current) drug therapy
CPT/HCPCS: 36415; 71045; 80053; 83735; 84100; 85025; 87081; 93005; 93306; 94760